=== PATIENT | female | born 1960 | race African-American/Black ===

== ENCOUNTER 2016-11-10 13:48 | Inpatient (IN) | payer SELFPAY ==
[~2016-11-10] VITALS: Ht 154.9 cm; Wt 70.4 kg
[~2016-11-10 13:48] MED LIST: ALBU6.7H INH; ALBU8I INH; AMOX500T PO; CHLO.12%30 SSP; FLAG500T PO; PRED20 PO; SYNT88TA PO; ULTR50TA PO
[2016-11-10 13:50] VITALS: BP 148/99; PULSE 92; RESP 16; TEMP 98.6; O2SAT 97
[2016-11-10] MEDS ORDERED: SYNT88TA PO (13:57)
--- NOTE | 2016-11-10 14:08 | PD ---
HPI Chief Complaint: Medication Refill Request Time Seen by Provider: 14:08 Travel History International Travel<30 days: No Contact w/Intl Traveler<30days: No Traveled to known affect area: No History of Present Illness HPI 56-year-old female with history of hypothyroidism, asthma presents to the ED for evaluation of swelling of the throat and tongue. Gradual onset. She complains of difficulty swallowing, feeling of "choking" and difficulties with breathing. Patient also endorses fatigue, weight gain, night sweats. She denies fevers, chills, palpitations, myalgias, loss of eyebrows, constipation. Patient states that she has been out of Synthroid for approximately 6 months. She lost her job and insurance and has been unable to find a provider willing to prescribe them. She is unsure of the cause of her hypothyroidism, has been on Synthroid since 1990. Denies other chronic health problems. Takes no daily medications. Multiple drug allergies. PFSH Past Medical History Asthma: Yes Respiratory: Yes (asthma) Thyroid Disease: Yes (hypothyroidism) ?: Not Past Surgical History Gynecologic Surgery: Yes (exploratory fibroid cyst in uterus 2000) Hysterectomy: No Social History Alcohol Use: No Tobacco Use: No Substance Use: No Allergies-Medications (Allergen,Severity, Reaction): Coded Allergies: Clindamycin (Verified Allergy, Severe, Diarrhea, 11/10/16) Ibuprofen (Verified Allergy, Severe, Anaphylaxis, 11/10/16) Sulfa (Verified Allergy, Severe, Anaphylaxis, 11/10/16) Tetracycline (Verified Allergy, Severe, Hives, 11/10/16) Reported Meds & Prescriptions Reported Meds & Active Scripts Active Reported Synthroid (Levothyroxine Sodium) 88 Mcg Tab 88 Mcg PO DAILY Review of Systems Except as stated in HPI: all other systems reviewed are Neg Physical Exam Narrative GENERAL: Well-nourished, [id number] female in no acute distress. SKIN: Warm and dry. HEAD: Normocephalic. EYES: No scleral icterus. No injection or drainage. No exophthalmos. NECK: Firm, enlarged, mildly nodular, nontender thyroid. Mallampati 3-4. Mild bilateral anterior cervical chain LAD. CARDIOVASCULAR: Regular rate and rhythm without murmurs, gallops, or rubs. 2+ radial pulses bilaterally. RESPIRATORY: Breath sounds equal bilaterally. Expiratory vibration/snore bilaterally. No accessory muscle use. GASTROINTESTINAL: Abdomen soft, non-tender, nondistended. MUSCULOSKELETAL: No cyanosis, or edema. BACK: Nontender without obvious deformity. No CVA tenderness. Data Data Last Documented VS Vital Signs Date Time Temp Pulse Resp B/P Pulse Ox O2 Delivery O2 Flow Rate FiO2 11/10/16 13:50 98.6 92 16 148/99 97 Room Air Orders Complete Blood Count With Diff (11/10/16 14:28) Comprehensive Metabolic Panel (11/10/16 14:28) Thyroid Stimulating Hormone (11/10/16 14:28) Free T3 (11/10/16 14:28) Free Thyroxine (T4) (11/10/16 14:28) Ct Soft Tiss Neck W Iv Cont (11/10/16 14:35) Iv Access Insert/Monitor (11/10/16 14:39) MDM Medical Decision Making Medical Screen Exam Complete: Yes Emergency Medical Condition: Yes Differential Diagnosis thyroiditis versus Eric versus Graves versus lymphoma versus airway obstruction versus other Narrative Course 56-year-old female with history of hypothyroidism, asthma presents to the ED for evaluation of swelling of the throat and tongue. Gradual onset. She complains of difficulty swallowing, feeling of "choking" and difficulties with breathing, fatigue, weight gain, night sweats. She denies fevers, chills, palpitations, myalgias, loss of eyebrows, constipation. Synthroid for 6 months. Unsure of the source of her hypothyroidism. Vitals reviewed. Patient is hypertensive 148/99 on presentation. Physical exam reveals a nontoxic- appearing black female in no acute distress. No exophthalmos. Firm, enlarged, mildly nodular, nontender thyroid. Mallampati 3-4. Mild bilateral anterior cervical chain LAD. Breath sounds equal bilaterally. Expiratory vibration/snore bilaterally. No accessory muscle use. Concern for airway obstruction secondary to goiter. CBC, CMP, TSH, free T4 and T3, thyroid ultrasound ordered. This patient will be transferred to the medical pods. Please see the oncoming provider's notes for disposition. Imani Alanis Nov 10, 2016 14:08
--- NOTE | 2016-11-10 14:55 | PD ---
Physical Exam Date Seen by Provider: Nov 10, 2016 Time Seen by Provider: 14:44 Narrative 56-year-old Afro-Portuguese male coming in with presumed goiter with history of hypothyroidism which has not been treated for the past 6 months secondary to insurance issues. Patient is having difficulty swallowing and swelling in the anterior neck. Patient previously seen by Aldo Alanis PAC move the patient to echo pod for more thorough investigation. Patient is currently medically stable. Data Data Last Documented VS Vital Signs Date Time Temp Pulse Resp B/P Pulse Ox O2 Delivery O2 Flow Rate FiO2 11/10/16 13:50 98.6 92 16 148/99 97 Room Air Orders Complete Blood Count With Diff (11/10/16 14:28) Comprehensive Metabolic Panel (11/10/16 14:28) Thyroid Stimulating Hormone (11/10/16 14:28) Free T3 (11/10/16 14:28) Free Thyroxine (T4) (11/10/16 14:28) Ct Soft Tiss Neck W Iv Cont (11/10/16 14:35) Iv Access Insert/Monitor (11/10/16 14:39) Iohexol 350 Inj (Omnipaque 350 Inj) (11/10/16 16:11) Us Thyroid (11/10/16 ) Labs Laboratory Tests Test 11/10/16 14:30 White Blood Count 6.5 TH/MM3 Red Blood Count 4.16 MIL/MM3 Hemoglobin 11.9 GM/DL Hematocrit 35.4 % Mean Corpuscular Volume 85.1 FL Mean Corpuscular Hemoglobin 28.6 PG Mean Corpuscular Hemoglobin 33.6 % Concent Red Cell Distribution Width 14.2 % Platelet Count 262 TH/MM3 Mean Platelet Volume 7.7 FL Neutrophils (%) (Auto) 69.1 % Lymphocytes (%) (Auto) 23.5 % Monocytes (%) (Auto) 5.0 % Eosinophils (%) (Auto) 1.6 % Basophils (%) (Auto) 0.8 % Neutrophils # (Auto) 4.5 TH/MM3 Lymphocytes # (Auto) 1.5 TH/MM3 Monocytes # (Auto) 0.3 TH/MM3 Eosinophils # (Auto) 0.1 TH/MM3 Basophils # (Auto) 0.1 TH/MM3 CBC Comment DIFF FINAL Differential Comment Sodium Level 139 MEQ/L Potassium Level 3.6 MEQ/L Chloride Level 103 MEQ/L Carbon Dioxide Level 26.8 MEQ/L Anion Gap 9 MEQ/L Blood Urea Nitrogen 13 MG/DL Creatinine 1.39 MG/DL Estimat Glomerular Filtration 47 ML/MIN Rate Random Glucose 89 MG/DL Calcium Level 8.8 MG/DL Total Bilirubin 0.5 MG/DL Aspartate Amino Transf 20 U/L (AST/SGOT) Alanine Aminotransferase 32 U/L (ALT/SGPT) Alkaline Phosphatase 85 U/L Total Protein 7.3 GM/DL Albumin 4.1 GM/DL Free Thyroxine 0.15 NG/DL Free Triiodothyronine (T3) 0.54 PG/ML pg/dL Thyroid Stimulating Hormone GREATER THAN 3rd Gen 100.000 uIU/ML MDM Medical Record Reviewed: Yes Supervised Visit with BRISA: Yes Differential Diagnosis Neck swelling. Goiter. Lymphadenopathy. Abscess. Difficulty swallowing. Possible airway compromise. Narrative Course Patient is medically stable when examined. Left been ordered including CBC, CMP, free T3 free T4 and TSH. CT of the soft tissue neck with IV contrast was ordered. Patient is seen by Dr. Newton as well. Patient is profoundly hypothyroid. CT does not show an patient to the airway. Ultrasound is ordered. Please see Dr. Newton's note. Patient will be admitted by the hospitalist. Patient discussed with the hospitalist by Dr. Newton. Diagnosis Primary Impression: Hypothyroidism Qualified Code: E03.0 - Congenital hypothyroidism with diffuse goiter Admitting Information Admitting Physician Requests: Admit Condition: Stable Av Lozoya Nov 10, 2016 14:55
[2016-11-10 15:09] LABS: AUTOMATED NEUTROPHIL # 4.5 TH/MM3 (1.8-7.7); BASOPHIL # 0.1 TH/MM3 (0-0.2); BASOPHIL % 0.8 % (0.0-2.0); EOSINOPHIL # 0.1 TH/MM3 (0-0.4); EOSINOPHIL % 1.6 % (0.0-4.0); HEMATOCRIT 35.4 % (35.0-46.0); HEMO FLAGS DIFF FINAL; LYMPH % 23.5 % (9.0-44.0); LYMPHOCYTE # 1.5 TH/MM3 (1.0-4.8); MEAN CELL VOLUME 85.1 FL (80.0-100.0); MEAN CORPUSCULAR HEMOGLOBIN 28.6 PG (27.0-34.0); MEAN CORPUSCULAR HGB CONC 33.6 % (32.0-36.0); NEUT % 69.1 % (16.0-70.0); PLATELET COUNT 262 TH/MM3 (150-450); RED BLOOD COUNT 4.16 MIL/MM3 (4.00-5.30); RED CELL DISTRIBUTION WIDTH 14.2 % (11.6-17.2); WHITE BLOOD COUNT 6.5 TH/MM3 (4.0-11.0)
[2016-11-10 15:21] LABS: ALT (GPT) 32 U/L (10-53); ANION GAP 9 MEQ/L (5-15); AST (GOT) 20 U/L (15-37); BICARBONATE 26.8 MEQ/L (21.0-32.0); BLOOD UREA NITROGEN 13 MG/DL (7-18); CHLORIDE 103 MEQ/L (98-107); GLOMERULAR FILTRATION RATE 47 ML/MIN (>89); POTASSIUM 3.6 MEQ/L (3.5-5.1); SODIUM (NA) 139 MEQ/L (136-145)
[2016-11-10 15:31] LABS: ALKALINE PHOSPHATASE 85 U/L (45-117); FREE T3 0.54 PG/ML (2.18-3.98); FREE T4 0.15 NG/DL (0.76-1.46); TOTAL BILIRUBIN ADULT 0.5 MG/DL (0.2-1.0)
[2016-11-10] MEDS ORDERED: IOHEXOL 350 MG/ML 10 ML VIAL (for RAD DIAG) IV ONE (16:11)
--- NOTE | 2016-11-10 16:17 | RADRPT ---
EXAM DATE/TIME: 11/10/2016 16:00 [facility] COMPARISON: No previous studies available for comparison. INDICATIONS : Goiter with airway compromise. IV CONTRAST: 75 cc Omnipaque 350 (iohexol) IV RADIATION DOSE: 14.76 CTDIvol (mGy) MEDICAL HISTORY : Hypothyroidism. SURGICAL HISTORY : None. ENCOUNTER: Initial ACUITY: 2 days PAIN SCALE: 3/10 LOCATION: neck TECHNIQUE: Volumetric scanning of the neck was performed. Using automated exposure control and adjustment of th e mA and/or kV according to patient size, radiation dose was kept as low as reasonably achievable to obtain optimal diagnostic quality images. FINDINGS: NASOPHARYNX: The nasopharyngeal airway has a normal configuration. No mucosal thickening or mass is seen. OROPHARYNX: The intrinsic muscles of the tongue are symmetric. The tonsillar pillars are intact. The prevertebr al soft tissues are not thickened. LARYNX: The supraglottic, glottic, and infraglottic structures are intact. PARAPHARYNGEAL: The parapharyngeal space is intact. SALIVARY GLANDS: The parotid and submandibular glands are intact. LYMPH NODES: No enlarged or necrotic-appearing nodes. THYROID: Homogeneous enhancement without evidence of nodule. There is no significant goiter or airway compromi se. BONES: Unremarkable. CONCLUSION: No acute disease. No evidence of significant goiter or airway compromise. Joe Yang MD on November 10, 2016 at 16:13 Board Certified Radiologist. This report was verified electronically.
--- NOTE | 2016-11-10 16:40 | PD ---
Data Data Last Documented VS Vital Signs Date Time Temp Pulse Resp B/P Pulse Ox O2 Delivery O2 Flow Rate FiO2 11/10/16 13:50 98.6 92 16 148/99 97 Room Air Orders Complete Blood Count With Diff (11/10/16 14:28) Comprehensive Metabolic Panel (11/10/16 14:28) Thyroid Stimulating Hormone (11/10/16 14:28) Free T3 (11/10/16 14:28) Free Thyroxine (T4) (11/10/16 14:28) Ct Soft Tiss Neck W Iv Cont (11/10/16 14:35) Iv Access Insert/Monitor (11/10/16 14:39) Iohexol 350 Inj (Omnipaque 350 Inj) (11/10/16 16:11) Us Thyroid (11/10/16 ) Admit Order (Ed Use Only) (11/10/16 16:41) Labs Laboratory Tests Test 11/10/16 14:30 White Blood Count 6.5 TH/MM3 Red Blood Count 4.16 MIL/MM3 Hemoglobin 11.9 GM/DL Hematocrit 35.4 % Mean Corpuscular Volume 85.1 FL Mean Corpuscular Hemoglobin 28.6 PG Mean Corpuscular Hemoglobin 33.6 % Concent Red Cell Distribution Width 14.2 % Platelet Count 262 TH/MM3 Mean Platelet Volume 7.7 FL Neutrophils (%) (Auto) 69.1 % Lymphocytes (%) (Auto) 23.5 % Monocytes (%) (Auto) 5.0 % Eosinophils (%) (Auto) 1.6 % Basophils (%) (Auto) 0.8 % Neutrophils # (Auto) 4.5 TH/MM3 Lymphocytes # (Auto) 1.5 TH/MM3 Monocytes # (Auto) 0.3 TH/MM3 Eosinophils # (Auto) 0.1 TH/MM3 Basophils # (Auto) 0.1 TH/MM3 CBC Comment DIFF FINAL Differential Comment Sodium Level 139 MEQ/L Potassium Level 3.6 MEQ/L Chloride Level 103 MEQ/L Carbon Dioxide Level 26.8 MEQ/L Anion Gap 9 MEQ/L Blood Urea Nitrogen 13 MG/DL Creatinine 1.39 MG/DL Estimat Glomerular Filtration 47 ML/MIN Rate Random Glucose 89 MG/DL Calcium Level 8.8 MG/DL Total Bilirubin 0.5 MG/DL Aspartate Amino Transf 20 U/L (AST/SGOT) Alanine Aminotransferase 32 U/L (ALT/SGPT) Alkaline Phosphatase 85 U/L Total Protein 7.3 GM/DL Albumin 4.1 GM/DL Free Thyroxine 0.15 NG/DL Free Triiodothyronine (T3) 0.54 PG/ML pg/dL Thyroid Stimulating Hormone GREATER THAN 3rd Gen 100.000 uIU/ML MDM Supervised Visit with BRISA: Yes Narrative Course I, Dr. Rodríguez, have reviewed the advance practice practioner's documentation and am in agreement, met with the patient face to face, made the diagnosis, and the medical decision making was done by me. *My assessment and Findings: 56-year-old female with history of hypothyroidism here with complaint of swelling in the back of her throat, states she feels like she is choking. Patient has been off of her Synthroid for the last 6 months. On exam she does have thyromegaly and swelling within the posterior pharynx, Mallampati 4. Concern for hypothyroidism, thyroid mass, thyroid cancer , goiter. CT shows no evidence of mass but this is present clinically so will work up further with ultrasound. Patient however has significant hypothyroidism with TSH greater than 100 and free T3/T4 essentially undetectable. Given my concerns for potential myxedema coma progression patient will be admitted for further management of her severe hypothyroidism, and farther workup for thyroidomegaly, thyroid mass, goiter. Diagnosis Primary Impression: Severe hypothyroidism Elyssa Rodríguez MD Nov 10, 2016 16:40
[2016-11-10] MEDS ORDERED: SENNOSIDES 8.6 MG TAB PO PRN (17:00)
[2016-11-10] MEDS ORDERED: PROCHLORPERAZINE 25 MG SUPP PR PRN (17:00)
[2016-11-10] MEDS ORDERED: TEMAZEPAM 15 MG CAP PO PRN (17:00)
[2016-11-10] MEDS ORDERED: SODIUM CHLORIDE 0.9% FLUSH 5 ML FLUSH FLUSH PRN (17:00)
[2016-11-10] MEDS ORDERED: ACETAMINOPHEN 325 MG TAB PO PRN (17:00)
[2016-11-10] MEDS ORDERED: MAGNESIUM HYDROXIDE SUSP 30 ML CUP PO PRN (17:00)
[2016-11-10] MEDS ORDERED: BISACODYL 10 MG SUPP PR PRN (17:00)
[2016-11-10] MEDS ORDERED: ONDANSETRON HCL 4 MG/2 ML VIAL IVP PRN (17:00)
[2016-11-10 17:29] VITALS: BP 129/92; PULSE 67; RESP 20; O2SAT 98
[2016-11-10] MEDS ORDERED: LEVOTHYROXINE SODIUM 100 MCG VIAL IV PUSH ONE (17:45)
--- NOTE | 2016-11-10 18:13 | HHI.HP ---
[facility] Primary Care Physician No Primary Care Physician Admission Diagnosis severe hypothyroidism Diagnoses: Chief Complaint: "Ran out of my thyroid medication and feel terrible" Travel History International Travel<30 Days: No Contact w/Intl Traveler <30 Da: No Traveled to Known Affected Are: No History of Present Illness Physical 56-year-old [place] female with past medical history which includes hypothyroidism and asthma. Patient reports she lost her job proximally 6 months ago as well as her health insurance and has not been able to get her thyroid medication. Reports she has been feeling progressively worse over the past few months and over the past 1.5 weeks she has been having difficulty swallowing therefore she proceeded to the emergency department for further evaluation and treatment. Patient also endorses fatigue, weight gain, night sweats. Patient denies shortness of breath chest pain vomiting. Patient reports she has not been eating or drinking as much as she normally does due to his difficulty swallowing. She is unsure of the cause of her hypothyroidism, has been on Synthroid since 1990. TSH noted to be greater than 100 Review of Systems Other All other systems reviewed and negative except as mentioned in history of present illness Past Family Social History Past Medical History Hypothyroidism and asthma Past Surgical History Exploratory surgery and removal of fibroid cyst from the uterus Reported Medications Synthroid (Levothyroxine Sodium) 88 Mcg Tab 88 Mcg PO DAILY- has not taken for the past 6 months Allergies: Coded Allergies: Clindamycin (Verified Allergy, Severe, Diarrhea, 11/10/16) Ibuprofen (Verified Allergy, Severe, Anaphylaxis, 11/10/16) Sulfa (Verified Allergy, Severe, Anaphylaxis, 11/10/16) Tetracycline (Verified Allergy, Severe, Hives, 11/10/16) Active Ordered Medications Current Medications Medications (Trade) Dose Ordered Sig/Molly Route Start Time Stop Time Status Last Admin (NS 1000 ml Inj) 1,000 ml @ 100 mls/hr Q10H IV 11/10/16 17:00 (NS Flush) 2 ml UNSCH PRN FLUSH 11/10/16 17:00 (NS Flush) 2 ml BID FLUSH 11/10/16 21:00 (Tylenol) 650 mg Q4H PRN PO 11/10/16 17:00 (Zofran Inj) 4 mg Q6H PRN IVP 11/10/16 17:00 (Compazine Supp) 25 mg Q12H PRN HI 11/10/16 17:00 (Dulcolax Supp) 10 mg DAILY PRN HI 11/10/16 17:00 (Milk Of Magnesia Liq) 30 ml Q12H PRN PO 11/10/16 17:00 (Senokot) 17.2 mg Q12H PRN PO 11/10/16 17:00 (Restoril) 15 mg HS PRN PO 11/10/16 17:00 (Lovenox Inj) 40 mg Q24H SQ 11/10/16 17:00 (Synthroid) 88 mcg DAILY@06 PO 11/11/16 06:00 Family History Father at 77 secondary to CVA Mother is living 83 years old and has dementia Social History Denies EtOH use tobacco use or illicit drug use Physical Exam Vital Signs Vital Signs Date Time Temp Pulse Resp B/P Pulse Ox O2 Delivery O2 Flow Rate FiO2 11/10/16 17:29 67 20 129/92 98 Room Air 11/10/16 13:50 98.6 92 16 148/99 97 Room Air Physical Exam GENERAL: This is a well-nourished, well-developed patient, appears fatigued and slow to respond SKIN: No rashes, ecchymoses or lesions. Cool and dry. HEAD: Atraumatic. Normocephalic. No temporal or scalp tenderness. Hair is coarse EYES: Extraocular motions intact. No scleral icterus. No injection or drainage. ENT: Nose without bleeding, purulent drainage or septal hematoma. Throat without erythema, tonsillar hypertrophy or exudate. Uvula midline. Airway patent. NECK: Trachea midline. No JVD or lymphadenopathy. Supple, nontender, no meningeal signs. CARDIOVASCULAR: Regular rate and rhythm without murmurs, gallops, or rubs. RESPIRATORY: Clear to auscultation. Breath sounds equal bilaterally. No wheezes , rales, or rhonchi. GASTROINTESTINAL: Abdomen soft, non-tender, nondistended. No hepato-splenomegaly , or palpable masses. No guarding. MUSCULOSKELETAL: Trace bilateral lower extremity edema No calf tenderness. Negative Homans sign bilaterally. NEUROLOGICAL: Awake and alert. No focal deficits identified. intact reflexes Motor and sensory grossly within normal limits. Five out of 5 muscle strength in all muscle groups. Slow speech. Laboratory Laboratory Tests Test 11/10/16 14:30 White Blood Count 6.5 Red Blood Count 4.16 Hemoglobin 11.9 Hematocrit 35.4 Mean Corpuscular Volume 85.1 Mean Corpuscular Hemoglobin 28.6 Mean Corpuscular Hemoglobin 33.6 Concent Red Cell Distribution Width 14.2 Platelet Count 262 Mean Platelet Volume 7.7 Neutrophils (%) (Auto) 69.1 Lymphocytes (%) (Auto) 23.5 Monocytes (%) (Auto) 5.0 Eosinophils (%) (Auto) 1.6 Basophils (%) (Auto) 0.8 Neutrophils # (Auto) 4.5 Lymphocytes # (Auto) 1.5 Monocytes # (Auto) 0.3 Eosinophils # (Auto) 0.1 Basophils # (Auto) 0.1 CBC Comment DIFF FINAL Differential Comment Sodium Level 139 Potassium Level 3.6 Chloride Level 103 Carbon Dioxide Level 26.8 Anion Gap 9 Blood Urea Nitrogen 13 Creatinine 1.39 Estimat Glomerular Filtration 47 Rate Random Glucose 89 Calcium Level 8.8 Total Bilirubin 0.5 Aspartate Amino Transf 20 (AST/SGOT) Alanine Aminotransferase 32 (ALT/SGPT) Alkaline Phosphatase 85 Total Protein 7.3 Albumin 4.1 Free Thyroxine 0.15 Free Triiodothyronine (T3) 0.54 pg/dL Thyroid Stimulating Hormone GREATER THAN 3rd Gen 100.000 Result Diagram: 11/10/16 1430 11/10/16 1430 Imaging Last Impressions Neck CT 11/10/16 1435 Signed Impressions: Service Date/Time: Thursday, November 10, 2016 16:00 - CONCLUSION: No acute disease. No evidence of significant goiter or airway compromise. Joe Yang MD Assessment and Plan Assessment and Plan Physical 56-year-old [place] female with past medical history which includes hypothyroidism and asthma. Patient reports she lost her job proximally 6 months ago as well as her health insurance and has not been able to get her thyroid medication. Reports she has been feeling progressively worse over the past few months and over the past 1.5 weeks she has been having difficulty swallowing therefore she proceeded to the emergency department for further evaluation and treatment. Severe hypothyroidism TSH dated in 100. Blood pressure and vital signs stable TSH 200 mcg IV times one start 88 mcg by mouth daily tomorrow Flat hemoglobin A1c and lipid panel to labs to check for metabolic syndrome Elevated creatinine, acute kidney injury possibly secondary to dehydration Start IV fluids and recheck BMP in a.m. Asthma history duo nebs as needed DVT prophylaxis SCDs and Ernst's Discussed plan of care with the ER provider, RN, patient Written by Brittney Gastelum, acting as scribe for Dr. Maki on 11/10/16 at 18 :13. The documentation accurately reflects the work performed [id number] by me Dr. Maki on 11/10/16 at 18:13. Code Status full code Discussed Condition With patient, nurse, ED physician Brittney Gastelum Nov 10, 2016 18:13 Sweta Maki MD Nov 10, 2016 21:26
[2016-11-10] MEDS: SODIUM CHLOR 0.9% 1000 ML INJ 1,000 ML IV SCH (18:57)
[2016-11-10] MEDS: ENOXAPARIN SODIUM 40 MG/0.4 ML SYRINGE SQ SCH (18:58)
[2016-11-10 20:00] VITALS: BP 132/88; PULSE 74; RESP 20; TEMP 96.7; O2SAT 100
[2016-11-10 20:05] LABS: HDL CHOLESTEROL 88.6 MG/DL (40.0-60.0); LDL CHOLESTEROL 261 MG/DL (0-99)
[2016-11-10] MEDS: SODIUM CHLORIDE 0.9% FLUSH 5 ML FLUSH FLUSH SCH (21:00)
[2016-11-10] MEDS ORDERED: BENZOCAINE 6 MG/MENTHOL 10 MG LOZENGE BUCCAL ONE (21:30)
[2016-11-11] VITALS (9 sets, daily range): BP systolic 107–141; BP diastolic 69–91; PULSE 51–74; RESP 16–22; TEMP 96.4–97.6; O2SAT 97–100
[2016-11-11] MEDS: SODIUM CHLOR 0.9% 1000 ML INJ 1,000 ML IV SCH ×3 (03:00→23:00)
[2016-11-11] MEDS: LEVOTHYROXINE SODIUM 88 MCG TAB PO SCH (06:22)
[2016-11-11 07:26] LABS: AUTOMATED NEUTROPHIL # 3.8 TH/MM3 (1.8-7.7); BASOPHIL # 0.1 TH/MM3 (0-0.2); EOSINOPHIL # 0.3 TH/MM3 (0-0.4); EOSINOPHIL % 3.6 % (0.0-4.0); HEMATOCRIT 34.4 % (35.0-46.0); HEMO FLAGS DIFF FINAL; LYMPH % 35.2 % (9.0-44.0); LYMPHOCYTE # 2.5 TH/MM3 (1.0-4.8); MEAN CORPUSCULAR HEMOGLOBIN 28.2 PG (27.0-34.0); MEAN CORPUSCULAR HGB CONC 32.7 % (32.0-36.0); MONO % 5.7 % (0.0-8.0); NEUT % 54.5 % (16.0-70.0); PLATELET COUNT 240 TH/MM3 (150-450); RED CELL DISTRIBUTION WIDTH 14.1 % (11.6-17.2)
[2016-11-11 07:53] LABS: ANION GAP 11 MEQ/L (5-15); BICARBONATE 25.1 MEQ/L (21.0-32.0); BLOOD UREA NITROGEN 13 MG/DL (7-18); CHLORIDE 105 MEQ/L (98-107); GLOMERULAR FILTRATION RATE 44 ML/MIN (>89); POTASSIUM 3.4 MEQ/L (3.5-5.1); SODIUM (NA) 141 MEQ/L (136-145)
[2016-11-11] MEDS: SODIUM CHLORIDE 0.9% FLUSH 5 ML FLUSH FLUSH SCH ×2 (09:00→20:41)
[2016-11-11 10:34] LABS: HEMOGLOBIN A1a 0.9 %; HEMOGLOBIN A1b 0.7 %; HEMOGLOBIN Ao 54.1 %; HEMOGLOBIN F 0.9 %; HEMOGLOBIN LA1C 1.1 %; HEMOGLOBIN P3 2.4 %
[2016-11-11] MEDS ORDERED: SYNT88TA PO (12:17)
[2016-11-11] MEDS ORDERED: NORC5TAB PO (12:17)
[2016-11-11] MEDS ORDERED: SIMV20TA PO (12:19)
[2016-11-11] MEDS ORDERED: FAMO1TAB37 PO (12:19)
--- NOTE | 2016-11-11 12:20 | HHI.DCPOC ---
Discharge Care Plan Goals to Promote Your Health * To prevent worsening of your condition and complications * To maintain your health at the optimal level Directions to Meet Your Goals Take your medications as prescribed Follow your dietary instruction Follow activity as directed Keep your appointments as scheduled Take your immunizations and boosters as scheduled If your symptoms worsen call your PCP, if no PCP go to Urgent Care Center or Emergency Room Smoking is Dangerous to Your Health. Avoid second hand smoke Call the 24-hour hour crisis hotline for domestic abuse at Sweta Maki MD Nov 11, 2016 12:19
[2016-11-11] MEDS ORDERED: POTASSIUM CHLORIDE 10 MEQ CONTROLLED RELEASE TAB PO ONE (13:00)
[2016-11-11] MEDS: ACETAMINOPHEN/HYDROcodone 325 MG/5 MG TAB PO PRN ×3 (13:00→23:15)
[2016-11-11] MEDS ORDERED: PANTOPRAZOLE SODIUM 40 MG VIAL IV PUSH ONE (13:00)
[2016-11-11] MEDS: NYSTAT/DIPHENHY/LIDO MOUTHWASH (Adult) 120ML SWISH-SWAL SCH ×3 (14:00→20:37)
--- NOTE | 2016-11-11 14:00 | HHI.PR ---
Subjective Remarks Patient says she can't eat much because she has dysphagia and she also has GERD and was not able to afford medications. She reports pain in her throat when she is eating. No fever or chills. No n/v/d/c. Objective Vitals Vital Signs Date Time Temp Pulse Resp B/P Pulse Ox O2 Delivery O2 Flow Rate FiO2 11/11/16 12:00 96.9 72 20 115/76 98 11/11/16 10:13 98 21 11/11/16 08:00 96.6 58 20 123/69 97 11/11/16 04:57 98 21 11/11/16 04:00 97.4 69 16 120/69 99 11/11/16 00:00 96.4 67 22 120/81 99 11/10/16 20:00 96.7 74 20 132/88 100 11/10/16 17:29 67 20 129/92 98 Room Air I/O 11/10/16 11/10/16 11/10/16 11/11/16 11/11/16 11/11/16 07:00 15:00 23:00 07:00 15:00 23:00 Intake Total 240 ml 240 ml Balance 240 ml 240 ml Intake Oral 240 ml 240 ml # Voids 2 2 # Bowel Movements 0 0 Result Diagram: 11/11/16 0603 11/11/16 0603 Imaging Last Impressions Neck CT 11/10/16 1435 Signed Impressions: Service Date/Time: Thursday, November 10, 2016 16:00 - CONCLUSION: No acute disease. No evidence of significant goiter or airway compromise. Joe Yang MD Objective Remarks GENERAL: This is a well-nourished, well-developed patient, appears fatigued and slow to respond SKIN: No rashes, ecchymoses or lesions. Cool and dry. HEAD: Atraumatic. Normocephalic. No temporal or scalp tenderness. Hair is coarse EYES: Extraocular motions intact. No scleral icterus. No injection or drainage. ENT: Nose without bleeding, purulent drainage or septal hematoma. Throat without erythema, tonsillar hypertrophy or exudate. Uvula midline. Airway patent. NECK: Trachea midline. No JVD or lymphadenopathy. Supple, nontender, no meningeal signs. CARDIOVASCULAR: Regular rate and rhythm without murmurs, gallops, or rubs. RESPIRATORY: Clear to auscultation. Breath sounds equal bilaterally. No wheezes , rales, or rhonchi. GASTROINTESTINAL: Abdomen soft, non-tender, nondistended. No hepato-splenomegaly , or palpable masses. No guarding. MUSCULOSKELETAL: Trace bilateral lower extremity edema No calf tenderness. Negative Homans sign bilaterally. NEUROLOGICAL: Awake and alert. No focal deficits identified. intact reflexes Motor and sensory grossly within normal limits. Five out of 5 muscle strength in all muscle groups. Slow speech. A/P Assessment and Plan Physical 56-year-old [place] female with past medical history which includes hypothyroidism and asthma. Patient reports she lost her job proximally 6 months ago as well as her health insurance and has not been able to get her thyroid medication. Reports she has been feeling progressively worse over the past few months and over the past 1.5 weeks she has been having difficulty swallowing therefore she proceeded to the emergency department for further evaluation and treatment. Severe hypothyroidism TSH dated in 100. Blood pressure and vital signs stable TSH 200 mcg IV times one at admission Start 88 mcg by mouth daily Hemoglobin A1c normal. Lipid panel reviewed patient with HLD, start statin Dysphagia. GERD. Start protonix. Give magic wash. Start pain meds. Elevated creatinine, acute kidney injury possibly secondary to dehydration Continue IV fluids , kidney function not improving. Will check UA and Kidney US Asthma history duo nebs as needed DVT prophylaxis SCDs and Ernst's Code Status full code Discussed Condition With patient, nurse, Sweta Maki MD Nov 11, 2016 14:00
[2016-11-11 16:28] LABS: BLOOD, URINE NEG (NEG); GLUCOSE,URINE NEG (NEG); KETONE, URINE NEG (NEG); NITRITE,URINE NEG (NEG); SQUAMOUS EPITHELIAL CELL URINE <1 /hpf (0-5); URINE COLOR LIGHT-YELLOW (YELLW/STRAW)
[2016-11-11 16:30] LABS: COMMENT (UR) CULT NOT INDICATED; CULTURE IF INDICATED CULT NOT INDICATED
[2016-11-11] MEDS: ENOXAPARIN SODIUM 40 MG/0.4 ML SYRINGE SQ SCH (16:59)
[2016-11-11] MEDS ORDERED: ATORVASTATIN 20 MG TAB PO SCH (21:00)
--- NOTE | 2016-11-11 23:03 | RADRPT ---
EXAM DATE/TIME: 11/11/2016 21:54 [facility] COMPARISON: No previous studies available for comparison. INDICATIONS : Increased BUN and Creatinine. MEDICAL HISTORY : Hypothyroidism. Asthma. SURGICAL HISTORY : Fibroid removal. ENCOUNTER: Initial ACUITY: 1 day PAIN SCORE: 0/10 LOCATION: Bilateral flank MEASUREMENTS: RIGHT KIDNEY: 9.0 x 4.6 x 3.7 cm LEFT KIDNEY: 11.5 x 4.6 x 5.8 cm FINDINGS: RIGHT KIDNEY: Renal cortex is normal in thickness and echotexture. No hydronephrosis, stone, or mass. LEFT KIDNEY: Renal cortex is normal in thickness and echotexture. No hydronephrosis, stone, or mass. BLADDER: Within normal limits given the degree of distension. CONCLUSION: 1. Unremarkable ultrasound examination of the kidneys. Kieran Teague MD on November 11, 2016 at 23:01 Board Certified Radiologist. This report was verified electronically.
[2016-11-12] VITALS (7 sets, daily range): BP systolic 122–139; BP diastolic 79–97; PULSE 38–82; RESP 16–20; TEMP 95.9–98.1; O2SAT 56–99
[2016-11-12] MEDS: LEVOTHYROXINE SODIUM 88 MCG TAB PO SCH (04:08)
[2016-11-12] MEDS: ACETAMINOPHEN/HYDROcodone 325 MG/5 MG TAB PO PRN ×2 (04:08→08:40)
[2016-11-12 05:16] LABS: ANION GAP 6 MEQ/L (5-15); BICARBONATE 28.8 MEQ/L (21.0-32.0); BLOOD UREA NITROGEN 14 MG/DL (7-18); CHLORIDE 105 MEQ/L (98-107); GLOMERULAR FILTRATION RATE 47 ML/MIN (>89); MAGNESIUM 2.2 MG/DL (1.5-2.5); POTASSIUM 4.1 MEQ/L (3.5-5.1); SODIUM (NA) 140 MEQ/L (136-145)
[2016-11-12 05:19] LABS: AUTOMATED NEUTROPHIL # 3.2 TH/MM3 (1.8-7.7); BASOPHIL % 0.8 % (0.0-2.0); EOSINOPHIL # 0.1 TH/MM3 (0-0.4); EOSINOPHIL % 2.5 % (0.0-4.0); HEMATOCRIT 32.9 % (35.0-46.0); HEMO FLAGS DIFF FINAL; LYMPH % 35.8 % (9.0-44.0); LYMPHOCYTE # 2.1 TH/MM3 (1.0-4.8); MEAN CELL VOLUME 85.6 FL (80.0-100.0); MEAN CORPUSCULAR HEMOGLOBIN 28.5 PG (27.0-34.0); MEAN CORPUSCULAR HGB CONC 33.3 % (32.0-36.0); MONO % 5.2 % (0.0-8.0); NEUT % 55.7 % (16.0-70.0); PLATELET COUNT 228 TH/MM3 (150-450); RED BLOOD COUNT 3.84 MIL/MM3 (4.00-5.30); RED CELL DISTRIBUTION WIDTH 14.3 % (11.6-17.2); WHITE BLOOD COUNT 5.8 TH/MM3 (4.0-11.0)
[2016-11-12] MEDS: NYSTAT/DIPHENHY/LIDO MOUTHWASH (Adult) 120ML SWISH-SWAL SCH ×2 (08:40→13:11)
[2016-11-12] MEDS: SODIUM CHLOR 0.9% 1000 ML INJ 1,000 ML IV SCH (08:42)
[2016-11-12] MEDS: SODIUM CHLORIDE 0.9% FLUSH 5 ML FLUSH FLUSH SCH (09:00)
[2016-11-12] MEDS ORDERED: PANTOPRAZOLE SOD 20 MG DELAYED RELEASE TAB PO SCH (09:00)
--- NOTE | 2016-11-12 10:06 | HHI.PR ---
Subjective Remarks Feels much better. Can eat better today. No n/v/d/c. Kidney function is improving. Objective Vitals Vital Signs Date Time Temp Pulse Resp B/P Pulse Ox O2 Delivery O2 Flow Rate FiO2 11/12/16 08:00 95.9 66 20 128/87 97 11/12/16 05:57 20 97 11/12/16 05:57 97.5 56 18 128/85 56 11/12/16 05:46 48 11/12/16 05:41 38 11/12/16 05:16 18 11/12/16 04:00 97.5 66 16 133/79 98 11/12/16 00:00 98.1 73 18 122/81 98 11/11/16 20:00 97.6 74 16 141/91 98 11/11/16 19:38 56 11/11/16 16:00 96.6 67 20 107/70 100 11/11/16 12:00 96.9 72 20 115/76 98 11/11/16 10:13 98 21 I/O 11/11/16 11/11/16 11/11/16 11/12/16 11/12/16 11/12/16 07:00 15:00 23:00 07:00 15:00 23:00 Intake Total 240 ml 600 ml 480 ml 708 ml Output Total 600 ml Balance 240 ml 0 ml 480 ml 708 ml Intake Oral 240 ml 600 ml 480 ml 240 ml IV Total 468 ml Output Urine Total 600 ml # Voids 2 3 1 2 # Bowel Movements 0 1 Result Diagram: 11/12/16 0335 11/12/16 0335 Imaging Last Impressions Neck CT 11/10/16 1435 Signed Impressions: Service Date/Time: Thursday, November 10, 2016 16:00 - CONCLUSION: No acute disease. No evidence of significant goiter or airway compromise. Joe Yang MD Objective Remarks GENERAL: This is a well-nourished, well-developed patient, appears fatigued and slow to respond SKIN: No rashes, ecchymoses or lesions. Cool and dry. HEAD: Atraumatic. Normocephalic. No temporal or scalp tenderness. Hair is coarse EYES: Extraocular motions intact. No scleral icterus. No injection or drainage. ENT: Nose without bleeding, purulent drainage or septal hematoma. Throat without erythema, tonsillar hypertrophy or exudate. Uvula midline. Airway patent. NECK: Trachea midline. No JVD or lymphadenopathy. Supple, nontender, no meningeal signs. CARDIOVASCULAR: Regular rate and rhythm without murmurs, gallops, or rubs. RESPIRATORY: Clear to auscultation. Breath sounds equal bilaterally. No wheezes , rales, or rhonchi. GASTROINTESTINAL: Abdomen soft, non-tender, nondistended. No hepato-splenomegaly , or palpable masses. No guarding. MUSCULOSKELETAL: Trace bilateral lower extremity edema No calf tenderness. Negative Homans sign bilaterally. NEUROLOGICAL: Awake and alert. No focal deficits identified. intact reflexes Motor and sensory grossly within normal limits. Five out of 5 muscle strength in all muscle groups. Slow speech. A/P Assessment and Plan Physical 56-year-old [place] female with past medical history which includes hypothyroidism and asthma. Patient reports she lost her job proximally 6 months ago as well as her health insurance and has not been able to get her thyroid medication. Reports she has been feeling progressively worse over the past few months and over the past 1.5 weeks she has been having difficulty swallowing therefore she proceeded to the emergency department for further evaluation and treatment. Severe hypothyroidism TSH dated in 100. Blood pressure and vital signs stable TSH 200 mcg IV times one at admission Start 88 mcg by mouth daily Hemoglobin A1c normal. Lipid panel reviewed patient with HLD, start statin Dysphagia. GERD. Start protonix. Give magic wash. Start pain meds. Elevated creatinine, acute kidney injury possibly secondary to dehydration Continue IV fluids , kidney function not improving. Will check UA and Kidney US Asthma history duo nebs as needed DVT prophylaxis SCDs and Ernst's Code Status full code Discussed Condition With patient, nurse, Discharge Planning DC home in fairly well condition To follow up with PCP and consultants as OP. Meds per med reconciliations. Activity ad gustavo as tolerated Diet regular, low fat diet CM for DC plan for meds and follow up Sweta Maki MD Nov 12, 2016 10:06
--- NOTE | 2016-11-12 16:03 | EKG ---
Date Performed: 11/12/2016 Time Performed: 06:21:12 PTAGE: 56 years EKG: SINUS BRADYCARDIA BORDERLINE LEFT AXIS DEVIATION LOW QRS VOLTAGE IN PRECORDIAL LEADS Diffus e nonspecific T wave flattenning Cannot rule out ischemia Clinical correlation is recommended BORDERL INE ECG NO PREVIOUS TRACING DOCTOR: Declan Jenkins Interpretating Date/Time 11/12/2016 16:01:49
== END 2016-11-12 13:54 | disposition home or self-care (01) | DRG 644 ==
LOC: NEPE 13:48 → NEDA 16:42 → N06A 19:36
PROVIDERS: ADMIT Hospitalist; ATTEND Hospitalist
DX: E03.9 Hypothyroidism, unspecified (principal); N17.9 Acute kidney failure, unspecified; E78.5 Hyperlipidemia, unspecified; J45.909 Unspecified asthma, uncomplicated; K21.9 Gastro-esophageal reflux disease without esophagitis; R13.10 Dysphagia, unspecified; E86.0 Dehydration; Z88.1 Allergy status to other antibiotic agents; Z88.2 Allergy status to sulfonamides; Z88.6 Allergy status to analgesic agent
CPT/HCPCS: 70491; 76775; 80048; 80053; 80061; 81001; 83036; 83735; 84439; 84443; 84481; 85025; 93005; C9113; J1650; J7030; Q9967

== ENCOUNTER 2017-02-19 13:57 | Emergency (ER) | payer SELFPAY ==
[~2017-02-19] VITALS: Ht 154.9 cm; Wt 61.5 kg
[~2017-02-19 13:57] MED LIST changes: -ALBU6.7H INH; -ALBU8I INH; -AMOX500T PO; -CHLO.12%30 SSP; -FLAG500T PO; -PRED20 PO; +SIMV20TA PO; -ULTR50TA PO
[2017-02-19 13:59] VITALS: BP 121/74; PULSE 81; RESP 17; TEMP 98.2; O2SAT 98
--- NOTE | 2017-02-19 14:07 | PD ---
Physical Exam Time Seen by Provider: 14:04 Narrative 56yo F c/o thyroid. Reports Insomnia, night sweats, confusion, anxiety, ALMARAZ's, not able to concentrate. No PCP. Been out of medication x1week. Denies chest pain, SOB, heart palpitations. Patient stable. Patient seen in triage. Awaiting bed placement. Data Data Last Documented VS Vital Signs Date Time Temp Pulse Resp B/P Pulse Ox O2 Delivery O2 Flow Rate FiO2 02/19/17 13:59 98.2 81 17 121/74 98 MDM Supervised Visit with BRISA: Violeta Koch Feb 19, 2017 14:07
[2017-02-19] MEDS ORDERED: LEVOTHYROXINE SODIUM 100 MCG TAB PO ONE (15:15)
[2017-02-19] MEDS ORDERED: LEVO.1 PO (15:41)
--- NOTE | 2017-02-19 15:41 | PD ---
HPI Chief Complaint: Medical Clearance Time Seen by Provider: 14:38 Travel History International Travel<30 days: No Contact w/Intl Traveler<30days: No Traveled to known affect area: No History of Present Illness HPI So 56-year-old woman who presents to the emergency department complaining of running out of her thyroid medicine about a week and a half ago. She states that she doesn't feel well and this happened. Her her hair falls out. She states despite taking her 80 g of Synthroid daily prior to this she never really felt well. She had previously been admitted to the hospital for hypothyroidism after running out of her medications for 6 months. History Past Medical History Narrative Medical Hypothyroidism Influenza Vaccination: No Social History Alcohol Use: No Tobacco Use: No Allergies-Medications (Allergen,Severity, Reaction): Coded Allergies: Clindamycin (Verified Allergy, Severe, Diarrhea, 02/19/17) Ibuprofen (Verified Allergy, Severe, Anaphylaxis, 02/19/17) Sulfa (Verified Allergy, Severe, Anaphylaxis, 02/19/17) Tetracycline (Verified Allergy, Severe, Hives, 02/19/17) Reported Meds & Prescriptions Reported Meds & Active Scripts Active Simvastatin 20 Mg Tab 20 Mg PO DAILY Synthroid (Levothyroxine Sodium) 88 Mcg Tab 88 Mcg PO DAILY Review of Systems Except as stated in HPI: all other systems reviewed are Neg Physical Exam Narrative GENERAL: Well-appearing 56-year-old woman, no acute distress. SKIN: Focused skin assessment warm/dry. HEAD: Atraumatic. Normocephalic. EYES: Pupils equal and round. No scleral icterus. No injection or drainage. ENT: No nasal bleeding or discharge. Mucous membranes pink and moist. NECK: Trachea midline. No JVD. CARDIOVASCULAR: Regular rate and rhythm. No murmur appreciated. RESPIRATORY: No accessory muscle use. Clear to auscultation. Breath sounds equal bilaterally. GASTROINTESTINAL: Abdomen soft, non-tender, nondistended. Hepatic and splenic margins not palpable. MUSCULOSKELETAL: No obvious deformities. No clubbing. No cyanosis. No edema. NEUROLOGICAL: Awake and alert. No obvious cranial nerve deficits. Motor grossly within normal limits. Normal speech. PSYCHIATRIC: Appropriate mood and affect; insight and judgment normal. Data Data Last Documented VS Vital Signs Date Time Temp Pulse Resp B/P Pulse Ox O2 Delivery O2 Flow Rate FiO2 02/19/17 13:59 98.2 81 17 121/74 98 Orders Levothyroxine (Synthroid) (02/19/17 15:15) [facility] Medical Decision Making Medical Screen Exam Complete: Yes Emergency Medical Condition: Yes Differential Diagnosis Hypothyroidism, out of medication, other Narrative Course Medical decision-making new para this a 56-year-old woman, 61 kg, who presents with running out of her thyroid medicines. She feels unwell after having run out of her thyroid medicines. She is pretty low dose for her weight. Unfortunately she's not been compliant one of her been able follow-up to get repeat labs when she's been on her medications. Nonetheless, given that she was still pretty symptomatic on her 80 g, and that is a low dose, I think should be okay to increase it to 100. She is going to get insurance in April. States she does not qualify for patient assistance because she now is employed. Nonetheless encouraged her to have repeat levels on her thyroid studies drawn in 8-10 weeks. She'll return for any worsening symptoms. I don't think he'll be any benefit in point thyroid studies now because a well almost certainly be abnormal and will be difficult to interpret whether this because she's been out of her medicines of the dose was low. Diagnosis Primary Impression: Hypothyroidism Patient Instructions: General Instructions Additional Instructions: Takes Synthroid as prescribed. Follow-up with her primary physician for repeat evaluation. You need repeat blood work 8-10 weeks. Return to the emergency department for any new or worsening symptoms. Med/Other Pt SpecificInfo: Prescription(s) given Scripts Levothyroxine (Synthroid)100 Mcg [id number] Mcg PO DAILY #30 TAB Ref 6 Prov:King Mata MD 02/19/17 Disposition: 01 DISCHARGE HOME Condition: Stable King Mata MD Feb 19, 2017 15:41
[2017-02-19] MEDS ORDERED: VENTAER INH (15:52)
== END 2017-02-19 15:58 | disposition home or self-care (01) ==
LOC: NEPD 13:57
DX: E03.9 Hypothyroidism, unspecified (principal); Z91.14 Patient's other noncompliance with medication regimen
CPT/HCPCS: 99283

== ENCOUNTER 2017-06-20 15:54 | Emergency (ER) | payer SELFPAY ==
[~2017-06-20] VITALS: Ht 154.9 cm; Wt 58.0 kg
[~2017-06-20 15:54] MED LIST changes: +LEVO.1 PO; +VENTAER INH
[2017-06-20 15:58] VITALS: BP 122/79; PULSE 104; RESP 20; TEMP 98.7; O2SAT 98
--- NOTE | 2017-06-20 16:08 | PD ---
Physical Exam Date Seen by Provider: Jun 20, 2017 Time Seen by Provider: 16:06 Narrative 56 yo female here for dental pain. Has had this since bitting on a banana. Pain with chewing. No other medical complains. Vitals are stable in triage. Awaiting bed placement. Data Data Last Documented VS Vital Signs Date Time Temp Pulse Resp B/P (MAP) Pulse Ox O2 Delivery O2 Flow Rate FiO2 06/20/17 15:58 98.7 104 20 122/79 (93) [address] [facility] Medical Record Reviewed: Yes Supervised Visit with BRISA: Brendon Weeks Jun 20, 2017 16:07
[2017-06-20] MEDS ORDERED: PERI0.126 SWISH-SPIT (17:20)
[2017-06-20] MEDS ORDERED: AMOX500C PO (17:20)
[2017-06-20] MEDS ORDERED: MAGICPED SWISH-SPIT (17:20)
--- NOTE | 2017-06-20 17:20 | PD ---
HPI Chief Complaint: Oral / Dental Pain or Problem Time Seen by Provider: 17:17 Travel History International Travel<30 days: No Contact w/Intl Traveler<30days: No Traveled to known affect area: No History of Present Illness HPI 56-year-old female presents to emergency Department with complaint of right upper tooth pain times one week. Says she tried eating a banana this morning and couldn't open her mouth all the way because of the pain. Denies throat pain or difficulty swallowing. Denies fever, vomiting. Denies facial edema. Has been taking Tylenol for symptom management. Pain is aggravated with opening her mouth wide. Symptoms are moderate in severity. Allergies to sulfa , doxycycline, ibuprofen, minocycline, tigecycline. Says she gets diarrhea when she takes clindamycin, but she is not allergic to it. No other medical complaints. No other modifying factors or associated signs and symptoms. PFSH Past Medical History Asthma: Yes Cancer: No Cardiovascular Problems: No Gastrointestinal Disorders: No Genitourinary: No Implanted Vascular Access Dvce: No Musculoskeletal: No Neurologic: No Psychiatric: No Reproductive: No Respiratory: Yes (asthma) Thyroid Disease: Yes (hypothyroidism) Past Surgical History Gynecologic Surgery: Yes (exploratory fibroid cyst in uterus 2000) Hysterectomy: No Social History Alcohol Use: No Tobacco Use: No Substance Use: No Allergies-Medications (Allergen,Severity, Reaction): Coded Allergies: Sulfa (Sulfonamide Antibiotics) (Verified Allergy, Severe, Anaphylaxis, ) doxycycline (Verified Allergy, Severe, Hives, 06/20/17) ibuprofen (Verified Allergy, Severe, Anaphylaxis, 06/20/17) minocycline (Verified Allergy, Severe, Hives, 06/20/17) tigecycline (Verified Allergy, Severe, Hives, 06/20/17) Reported Meds & Prescriptions Reported Meds & Active Scripts Active Deltasone (Prednisone) 20 Mg Tab 40 Mg PO DAILY 4 Days start 06/21/2017 Clindamycin (Clindamycin HCl) 150 Mg Cap 450 Mg PO Q6H 10 Days Tramadol (Tramadol HCl) 50 Mg Tab 50 Mg PO Q4-6H PRN Peridex Liq (Chlorhexidine Gluconate (Mouth) Liq) 0.12% Soln 15 Ml SWISH-SPIT BID 10 Days Magic Mouthwash Pediatric/Adult Liq (Lidocaine/Diphenhydr/Alum/Mg/Simeth) 60 Ml Susp 5 Ml SWISH-SPIT Q3HR PRN Each 5mL contains: Diphenydramine 4.5mg, Viscous Lidocaine 2% 10mg, Maalox Advanced Regular Strength 2.7ml Ventolin Hfa 18 GM Inh (Albuterol Sulfate) 90 Mcg/Act Aer 2 Puff INH Q4-6H PRN Synthroid (Levothyroxine Sodium) 100 Mcg Tab 100 Mcg PO DAILY Simvastatin 20 Mg Tab 20 Mg PO DAILY Synthroid (Levothyroxine Sodium) 88 Mcg Tab 88 Mcg PO DAILY Review of Systems Except as stated in HPI: all other systems reviewed are Neg Physical Exam Narrative GENERAL: Well-nourished, well-developed female patient, in no acute distress; afebrile, nontoxic-appearing SKIN: Warm and dry. HEAD: Atraumatic. Normocephalic. No facial edema, erythema. tenderness on palpation to the right cheek. No lymphadenopathy. EYES: Pupils equal and round. No scleral icterus. No injection or drainage. ENT: Mucosa pink and moist. No erythema or exudates. No uvular edema. No uvular , palatal, or tonsillar deviation. Airway patent. MOUTH: Mucous membranes moist, no lesions, tongue and gums appear normal. Poor dentition throughout with multiple dental cavities noted. Patient speaking in full sentences. Tooth #2 with tenderness on palpation; small amount of purulent drainage noted above the tooth and the gingiva is edematous. The area that is draining purulent Drainage is nonfluctuant NECK: Trachea midline. No lymphadenopathy. CARDIOVASCULAR: Regular rate. RESPIRATORY: No accessory muscle use. GASTROINTESTINAL: Rounded. MUSCULOSKELETAL: No obvious deformities. No clubbing. No cyanosis. No edema. NEUROLOGICAL: Awake and alert. Oriented 3. No obvious cranial nerve deficits. Motor grossly within normal limits. Normal speech. PSYCHIATRIC: Appropriate mood and affect; insight and judgment normal. Data Data Last Documented VS Vital Signs Date Time Temp Pulse Resp B/P (MAP) Pulse Ox O2 Delivery O2 Flow Rate FiO2 06/20/17 15:58 98.7 104 20 122/79 (93) 98 Room Air Orders Orders Acetaminophen (Tylenol) (06/20/17 17:30) Clindamycin Inj (Cleocin Inj) (06/20/17 17:45) Prednisone (Deltasone) (06/20/17 17:45) MDM Medical Decision Making Medical Screen Exam Complete: Yes Emergency Medical Condition: Yes Medical Record Reviewed: Yes Differential Diagnosis Dental abscess, dentalgia, dental caries, less likely peritonsillar abscess Narrative Course 56-year-old female with dental abscess noted to tooth #2. No facial edema or erythema. No lymphadenopathy. Patient is afebrile and nontoxic-appearing. She denies fever, vomiting. She is able to open her mouth and is talking freely. No signs of peritonsillar abscess. Patient has excruciating pain in her right cheek when she opens her mouth and is hesitating. 1750: I spoke with Dr. Schmidt, my attending physician and she came to the bedside to evaluate the patient. Dr. Schmidt evaluated the patient and agrees with the treatment plan. Clindamycin IM, Tylenol, and Deltasone administered in the ER. Clindamycin, tramadol, Peridex mouth rinse, and Magic mouthwash prescribed for home. Patient provided emergency dental information sheet. Instructed patient to follow up with dentist in one day. Instructed patient to follow up with primary care provider. Patient verbalizes understanding and agreement with treatment plan. Patient is medically cleared and stable for discharge. Discussed reasons to return to the emergency department. Patient agrees with treatment plan. The patients vital signs are stable and the patient is stable for outpatient follow-up and treatment. Patient discharged home, stable and in no acute distress. Diagnosis Primary Impression: Dental abscess Referrals: Dentist Primary Care Physician Patient Instructions: Dental Abscess (ED), Dental Caries (ED), General Instructions, Toothache (ED) Departure Forms: Tests/Procedures, Work Release Enter return to work date: Jun 22, 2017 Additional Instructions: Complete full course of antibiotics Tylenol as directed and as needed to reduce pain and inflammation Use Magic mouthwash rinse as directed and as needed to decrease pain Use Peridex as directed for oral hygiene Warm or cool compresses to the affected area Follow-up with dentist Follow-up with primary care provider Return to emergency department immediately with worsening of symptoms Med/Other Pt SpecificInfo: Prescription(s) given Scripts Prednisone (Deltasone) 20 Mg Tab 40 MG PO DAILY for 4 Days, TAB 0 Refills start 06/21/2017 Prov: Violeta Luz 06/20/17 Clindamycin (Clindamycin) 150 Mg Cap 450 MG PO Q6H for Infection for 10 Days, CAP 0 Refills Prov: Violeta Luz 06/20/17 Tramadol (Tramadol) 50 Mg Tab 50 MG PO Q4-6H Y for PAIN, #10 TAB 0 Refills Prov: Marianna cShmidt MD 06/20/17 Chlorhexidine Gluconate (Mouth) Liq (Peridex Liq) 0.12% Soln 15 ML SWISH-SPIT BID for 10 Days, #473 ML 0 Refills Prov: Violeta uLz 06/20/17 [id number]-Lsq-Alum-Simeth Liq (Magic Mouthwash Pediatric/Adult Liq) 60 Ml Susp 5 ML SWISH-SPIT Q3HR Y for PAIN SCALE 1 TO 10, #60 ML 0 Refills Each 5mL contains: Diphenydramine 4.5mg, Viscous Lidocaine 2% 10mg, Maalox Advanced Regular Strength 2.7ml Prov: Violeta Luz 06/20/17 Disposition: 01 DISCHARGE HOME Condition: Stable Violeta Luz Jun 20, 2017 17:20
[2017-06-20] MEDS ORDERED: ACETAMINOPHEN 325 MG TAB PO ONE (17:30)
[2017-06-20] MEDS ORDERED: TRAM50TA PO (17:36)
[2017-06-20] MEDS ORDERED: CLIN1CAP5 PO (17:38)
[2017-06-20] MEDS ORDERED: CLINDAMYCIN PHOS 600 MG/4 ML VIAL IM ONE (17:45)
[2017-06-20] MEDS ORDERED: predniSONE 20 MG TAB PO ONE (17:45)
[2017-06-20] MEDS ORDERED: PRED-503 PO (17:52)
== END 2017-06-20 18:40 | disposition home or self-care (01) ==
LOC: NEPK 15:54
DX: K04.7 Periapical abscess without sinus (principal)
CPT/HCPCS: 96372; 99284; J7512

== ENCOUNTER 2017-09-03 13:38 | Emergency (ER) | payer SELFPAY ==
[~2017-09-03] VITALS: Ht 154.9 cm; Wt 57.5 kg
[~2017-09-03 13:38] MED LIST changes: +CLIN150C14 PO; +MAGICPED SWISH-SPIT; +PERI0.126 SWISH-SPIT; +PRED-503 PO; +TRAM50TA PO
[2017-09-03 13:39] VITALS: BP 130/80; PULSE 97; RESP 20; TEMP 98.4; O2SAT 98
[2017-09-03] MEDS ORDERED: TRAM50TA PO (15:16)
[2017-09-03] MEDS ORDERED: ALBUAER3 INH (15:16)
[2017-09-03] MEDS ORDERED: PRED10PA PO (15:16)
--- NOTE | 2017-09-03 15:21 | PD ---
HPI Chief Complaint: Medical Clearance Time Seen by Provider: 15:14 Travel History International Travel<30 days: No Contact w/Intl Traveler<30days: No Traveled to known affect area: No History of Present Illness HPI 57-year-old female presents for evaluation. She reports a history of rheumatoid arthritis with chronic arthralgias in the hands, knees, worse at night, unrelieved with aclv-edl-icinebi NSAIDs. She is also complaining of asthma exacerbation which started 2 weeks ago. She reports wheezing, cough with occasional clear sputum production, unrelieved with her DuoNeb therapy at home. Denies fevers, chills. She does not currently have a primary care physician. No other complaints. PFSH Past Medical History Asthma: Yes Cancer: No Cardiovascular Problems: No Gastrointestinal Disorders: No Genitourinary: No Implanted Vascular Access Dvce: No Musculoskeletal: No Neurologic: No Psychiatric: No Reproductive: No Respiratory: Yes (asthma) Thyroid Disease: Yes (hypothyroidism) Past Surgical History Gynecologic Surgery: Yes (exploratory fibroid cyst in uterus 2000) Hysterectomy: No Social History Alcohol Use: No Tobacco Use: No Substance Use: No Allergies-Medications (Allergen,Severity, Reaction): Coded Allergies: Sulfa (Sulfonamide Antibiotics) (Verified Allergy, Severe, Anaphylaxis, ) doxycycline (Verified Allergy, Severe, Hives, 06/20/17) ibuprofen (Verified Allergy, Severe, Anaphylaxis, 06/20/17) minocycline (Verified Allergy, Severe, Hives, 06/20/17) tigecycline (Verified Allergy, Severe, Hives, 06/20/17) Reported Meds & Prescriptions Reported Meds & Active Scripts Active Proair Hfa 8.5 GM Inh (Albuterol Sulfate) 90 Mcg/Act Aer 2 Puff INH Q4-6H PRN 108 mcg/actuation Tramadol (Tramadol HCl) 50 Mg Tab 50 Mg PO Q6H PRN Prednisone (21) 10 mg tab Dose Pack (Prednisone) 10 Mg Pack 10 Mg PO DIRECTED Tramadol (Tramadol HCl) 50 Mg Tab 50 Mg PO Q4-6H PRN Ventolin Hfa 18 GM Inh (Albuterol Sulfate) 90 Mcg/Act Aer 2 Puff INH Q4-6H PRN Synthroid (Levothyroxine Sodium) 100 Mcg Tab 100 Mcg PO DAILY Simvastatin 20 Mg Tab 20 Mg PO DAILY Synthroid (Levothyroxine Sodium) 88 Mcg Tab 88 Mcg PO DAILY Review of Systems Except as stated in HPI: all other systems reviewed are Neg Physical Exam Narrative GENERAL: Well-nourished female in no acute distress SKIN: Warm and dry. HEAD: Atraumatic. Normocephalic. EYES: Pupils equal and round. No scleral icterus. No injection or drainage. ENT: No nasal bleeding or discharge. Mucous membranes pink and moist. NECK: Trachea midline. No JVD. CARDIOVASCULAR: Regular rate and rhythm. No murmur appreciated. RESPIRATORY: No accessory muscle use. Mild wheezing bilaterally. No crackles. GASTROINTESTINAL: Abdomen soft, non-tender, nondistended. Hepatic and splenic margins not palpable. MUSCULOSKELETAL: No obvious deformities. No clubbing. No cyanosis. No edema. NEUROLOGICAL: Awake and alert. No obvious cranial nerve deficits. Motor grossly within normal limits. Normal speech. Data Data Last Documented VS Vital Signs Date Time Temp Pulse Resp B/P (MAP) Pulse Ox O2 Delivery O2 Flow Rate FiO2 09/03/17 13:39 98.4 97 20 130/80 (97) 98 Room Air MDM Medical Decision Making Medical Screen Exam Complete: Yes Emergency Medical Condition: Yes Medical Record Reviewed: Yes Differential Diagnosis Asthma exacerbation, arthralgias, rheumatoid arthritis, bronchitis, pneumonia Narrative Course The patient is being discharged with a prednisone taper as well as a short course of tramadol for breakthrough pain, refill of her albuterol inhaler. Diagnosis Primary Impression: Asthma exacerbation Additional Impression: Rheumatoid arthritis Additional Instructions: Medication as prescribed. Follow-up with a primary care physician. Return for any emergent medical conditions. Med/Other Pt SpecificInfo: Prescription(s) given Scripts Albuterol 8.5 GM Inh (Proair Hfa 8.5 GM Inh) 90 Mcg/Act Aer 2 PUFF INH Q4-6H Y for SHORTNESS OF BREATH, #1 INHALER 0 Refills 108 mcg/actuation Prov: Emi Garcia MD 09/03/17 Tramadol (Tramadol) 50 Mg Tab 50 MG PO Q6H Y for PAIN, #12 TAB 0 Refills Prov: Emi Garcia MD 09/03/17 Prednisone (21) 10 mg tab Dose Pack (Prednisone (21) 10 mg tab Dose Pack) 10 Mg Pack 10 MG PO DIRECTED for Inflammation, #1 DSPK 0 Refills Prov: Emi Garcia MD 09/03/17 Disposition: 01 DISCHARGE HOME Condition: Stable Kei Royal Sep 03, 2017 15:21
[2017-09-03] MEDS ORDERED: RESP: ALBUTEROL 2.5 MG/IPRATROPIUM 0.5 MG NEB (SCH) INH ONE (15:30)
[2017-09-03] MEDS ORDERED: methylPREDNISolone SOD SUCC 125 MG/2 ML VIAL IM SCH (15:45)
== END 2017-09-03 16:40 | disposition home or self-care (01) ==
LOC: NEPK 13:38
DX: J45.901 Unspecified asthma with (acute) exacerbation (principal); M06.9 Rheumatoid arthritis, unspecified; E03.9 Hypothyroidism, unspecified
CPT/HCPCS: 94664; 96372; 99284; J2930

== ENCOUNTER 2017-11-28 13:39 | Emergency (ER) | payer SELFPAY ==
[~2017-11-28] VITALS: Ht 154.9 cm; Wt 64.6 kg
[~2017-11-28 13:39] MED LIST changes: +ALBUAER3 INH; -CLIN150C14 PO; -MAGICPED SWISH-SPIT; -PERI0.126 SWISH-SPIT; -PRED-503 PO; +PRED10PA PO
[2017-11-28 13:42] VITALS: BP 121/75; PULSE 91; RESP 18; TEMP 99.2; O2SAT 99
[2017-11-28] MEDS ORDERED: SODIUM CHLORIDE 0.9% FLUSH 10 ML FLUSH IVF PRN (14:45)
[2017-11-28] MEDS ORDERED: methylPREDNISolone SOD SUCC 125 MG/2 ML VIAL IV PUSH ONE (14:45)
[2017-11-28 15:05] VITALS: O2SAT 99
[2017-11-28] MEDS: RESP: ALBUTEROL 2.5 MG/IPRATROPIUM 0.5 MG NEB (SCH) INH (15:06)
--- NOTE | 2017-11-28 15:06 | PD ---
HPI Chief Complaint: Respiratory Symptoms Time Seen by Provider: 14:45 Travel History International Travel<30 days: No Contact w/Intl Traveler<30days: No Traveled to known affect area: No History of Present Illness HPI 58 year old F with history of asthma presents in ED presenting with dyspnea and chest tightness X 1 week worsening this morning associated with a clear sputum productive cough at night. She states that this feels similar to her previous asthma exacerbations however she currently is not employed and is having difficulty getting her dounebs and Ventolin due to lack of insurance. She is currently taking OTC Robitussin with no relief of cough. She was last in the ED for the same one month ago and received Solu Medrol shot with relief. She feels that this is stressed induced because she is worried about her employment status. She denies CP, fevers, abd pain, N/V, heart palpitations. She has not received a flu shot and does not want one. Non smoker, no alcohol or drug usage. Risk Factors:Previous asthma exacerbation. Modifying Factors:[None] Associated sign and symptoms: SOB, chest tightness PFSH Past Medical History Asthma: Yes Cancer: No Cardiovascular Problems: No Gastrointestinal Disorders: No Genitourinary: No Implanted Vascular Access Dvce: No Musculoskeletal: No Neurologic: No Psychiatric: No Reproductive: No Respiratory: Yes (asthma) Thyroid Disease: Yes (hypothyroidism) Past Surgical History Gynecologic Surgery: Yes (exploratory fibroid cyst in uterus 2000) Hysterectomy: No Social History Alcohol Use: No Tobacco Use: No Substance Use: No Allergies-Medications (Allergen,Severity, Reaction): Coded Allergies: Sulfa (Sulfonamide Antibiotics) (Verified Allergy, Severe, Anaphylaxis, ) doxycycline (Verified Allergy, Severe, Hives, 11/28/17) ibuprofen (Verified Allergy, Severe, Anaphylaxis, 11/28/17) minocycline (Verified Allergy, Severe, Hives, 11/28/17) tigecycline (Verified Allergy, Severe, Hives, 11/28/17) Reported Meds & Prescriptions Reported Meds & Active Scripts Active Synthroid (Levothyroxine Sodium) 88 Mcg Tab 88 Mcg PO DAILY Review of Systems Except as stated in HPI: all other systems reviewed are Neg Physical Exam Narrative GENERAL: Well nourished appearing female in ED, mildly distressed appears uncomfortable. SKIN: Warm and dry. HEAD: Atraumatic. Normocephalic. EYES: Pupils equal and round. No scleral icterus. No injection or drainage. ENT: No nasal bleeding or discharge. Mucous membranes pink and moist. NECK: Trachea midline. No JVD. CARDIOVASCULAR: Regular rate and rhythm. RESPIRATORY: No accessory muscle use. Mild wheezing throughout. GASTROINTESTINAL: Abdomen soft, non-tender, nondistended. Hepatic and splenic margins not palpable. MUSCULOSKELETAL: Extremities without clubbing, cyanosis, or edema. No obvious deformities. NEUROLOGICAL: Awake and alert. No obvious cranial nerve deficits. Motor grossly within normal limits. Five out of 5 muscle strength in the arms and legs. Normal speech. PSYCHIATRIC: Appropriate mood and affect; insight and judgment normal. Data Data Last Documented VS Vital Signs Date Time Temp Pulse Resp B/P (MAP) Pulse Ox O2 Delivery O2 Flow Rate FiO2 11/28/17 15:28 99 Room Air 11/28/17 15:05 21 11/28/17 13:42 99.2 91 18 121/75 (90) Orders Orders Complete Blood Count With Diff (11/28/17 14:45) Basic Metabolic Panel (Bmp) (11/28/17 14:45) B-Type Natriuretic Peptide (11/28/17 14:45) Iv Access Insert/Monitor (11/28/17 14:45) Ecg Monitoring (11/28/17 14:45) Oximetry (11/28/17 14:45) Oxygen Administration (11/28/17 14:45) Chest, Single Ap (11/28/17 14:45) Sodium Chloride 0.9% Flush (Ns Flush) (11/28/17 14:45) Methylprednisolone So Succ Inj (Solumedr (11/28/17 14:45) Albuterol-Ipratropium Neb (Duoneb Neb) (11/28/17 14:45) Labs Laboratory Tests Test 11/28/17 15:15 White Blood Count 6.5 TH/MM3 Red Blood Count 4.84 MIL/MM3 Hemoglobin 12.5 GM/DL Hematocrit 40.6 % Mean Corpuscular Volume 83.7 FL Mean Corpuscular Hemoglobin 25.9 PG Mean Corpuscular Hemoglobin Concent 30.9 % Red Cell Distribution Width 14.0 % Platelet Count 270 TH/MM3 Mean Platelet Volume 7.9 FL Neutrophils (%) (Auto) 62.9 % Lymphocytes (%) (Auto) 27.7 % Monocytes (%) (Auto) 5.8 % Eosinophils (%) (Auto) 1.5 % Basophils (%) (Auto) 2.1 % Neutrophils # (Auto) 4.1 TH/MM3 Lymphocytes # (Auto) 1.8 TH/MM3 Monocytes # (Auto) 0.4 TH/MM3 Eosinophils # (Auto) 0.1 TH/MM3 Basophils # (Auto) 0.1 TH/MM3 CBC Comment DIFF FINAL Differential Comment Blood Urea Nitrogen 14 MG/DL Creatinine 0.95 MG/DL Random Glucose 105 MG/DL Calcium Level 8.6 MG/DL Sodium Level 141 MEQ/L Potassium Level 3.4 MEQ/L Chloride Level 109 MEQ/L Carbon Dioxide Level 27.5 MEQ/L Anion Gap 5 MEQ/L Estimat Glomerular Filtration Rate 73 ML/MIN MDM Medical Decision Making Medical Screen Exam Complete: Yes Emergency Medical Condition: Yes Interpretation(s) Laboratory Tests Test 11/28/17 15:15 Mean Corpuscular Hemoglobin 25.9 PG (27.0-34.0) Mean Corpuscular Hemoglobin Concent 30.9 % (32.0-36.0) Basophils (%) (Auto) 2.1 % (0.0-2.0) Potassium Level 3.4 MEQ/L (3.5-5.1) Chloride Level 109 MEQ/L (98-107) Estimat Glomerular Filtration Rate 73 ML/MIN (>89) Last 24 hours Impressions Chest X-Ray 11/28/17 1445 Signed Impressions: Service Date/Time: Tuesday, November 28, 2017 15:18 - CONCLUSION: No acute disease. Chacho Hanley Jr., MD Differential Diagnosis Asthma exacerbation vs pneumonia vs URI vs COPD vs CHF Narrative Course Chest x-ray did not show any signs of acute pulmonary processes. Patient was given nebulizer in the ER with improvement symptoms. At this point, my plan would be to treat her symptomatically and have her follow-up with primary care doctor. Return for any worsening in symptoms as needed. The plan has been discussed with her and she states understanding. In addition, she is requesting Tessalon Perles because she states that her coughing was what triggered this whole issue. I have notified her that Tessalon Perles alone a likely not to help with the underlying wheezing. She states understanding as well. Diagnosis Primary Impression: Bronchitis Med/Other Pt SpecificInfo: Prescription(s) given Scripts Benzonatate (Tessalon Perles) 100 Mg Cap 100 MG PO TID Y for COUGH, #12 CAP 0 Refills Prov: Zuhair Nair MD 11/28/17 Prednisone (Prednisone) 50 Mg Tab 50 MG PO DAILY for 3 Days, #3 TAB 0 Refills Prov: Zuhair Nair MD 11/28/17 Albuterol 8.5 GM Inh (Proair Hfa 8.5 GM Inh) 90 Mcg/Act Aer 2 PUFF INH Q4-6H Y for SHORTNESS OF BREATH, #1 INHALER 0 Refills 108 mcg/actuation Prov: Zuhair Nair MD 11/28/17 Disposition: 01 DISCHARGE HOME Condition: Stable Zuhair Nair MD Nov 28, 2017 15:06
[2017-11-28 15:25] LABS: AUTOMATED NEUTROPHIL # 4.1 TH/MM3 (1.8-7.7); BASOPHIL # 0.1 TH/MM3 (0-0.2); BASOPHIL % 2.1 % (0.0-2.0); EOSINOPHIL # 0.1 TH/MM3 (0-0.4); EOSINOPHIL % 1.5 % (0.0-4.0); HEMATOCRIT 40.6 % (35.0-46.0); HEMOGLOBIN 12.5 GM/DL (11.6-15.3); LYMPH % 27.7 % (9.0-44.0); LYMPHOCYTE # 1.8 TH/MM3 (1.0-4.8); MEAN CELL VOLUME 83.7 FL (80.0-100.0); MEAN CORPUSCULAR HEMOGLOBIN 25.9 PG (27.0-34.0); MEAN CORPUSCULAR HGB CONC 30.9 % (32.0-36.0); MEAN PLATELET VOLUME 7.9 FL (7.0-11.0); MONO % 5.8 % (0.0-8.0); MONOCYTE # 0.4 TH/MM3 (0-0.9); NEUT % 62.9 % (16.0-70.0); PLATELET COUNT 270 TH/MM3 (150-450); RED BLOOD COUNT 4.84 MIL/MM3 (4.00-5.30); WHITE BLOOD COUNT 6.5 TH/MM3 (4.0-11.0)
[2017-11-28 15:28] VITALS: O2SAT 99
--- NOTE | 2017-11-28 15:33 | RADRPT ---
EXAM DATE/TIME: 11/28/2017 15:18 [facility] COMPARISON: CHEST SINGLE AP, August 24, 2016, 15:10. INDICATIONS : Shortness of breath. MEDICAL HISTORY : Asthma. SURGICAL HISTORY : None. ENCOUNTER: Initial ACUITY: 1 day PAIN SCORE: 0/10 LOCATION: Bilateral chest FINDINGS: A single view of the chest demonstrates the lungs to be symmetrically aerated without evidence of mas s, infiltrate or effusion. The cardiomediastinal contours are unremarkable. Osseous structures are intact. CONCLUSION: No acute disease. Chacho Hanley Jr., MD on November 28, 2017 at 15:29 Board Certified Radiologist. This report was verified electronically.
[2017-11-28 15:37] LABS: CALCIUM 8.6 MG/DL (8.5-10.1)
[2017-11-28 15:38] LABS: BICARBONATE 27.5 MEQ/L (21.0-32.0)
[2017-11-28 15:41] LABS: CREATININE 0.95 MG/DL (0.50-1.00)
[2017-11-28] MEDS ORDERED: ALBUAER3 INH (15:50)
[2017-11-28] MEDS ORDERED: PRED50 PO (15:50)
[2017-11-28] MEDS ORDERED: BENZ100 PO (15:50)
[2017-11-28 16:01] VITALS: BP 120/79
[2017-11-28] MEDS ORDERED: ALBU0.08 NEB (16:13)
--- NOTE | 2017-11-28 17:23 | EKG ---
Date Performed: 11/28/2017 Time Performed: 13:58:08 PTAGE: 57 years EKG: Sinus rhythm LOW QRS VOLTAGE IN PRECORDIAL LEADS BORDERLINE ECG No significant change from prior electrocardiogra m. PREVIOUS TRACING : 11/12/2016 06.21 DOCTOR: Lewis Shea Interpretating Date/Time 11/28/2017 17:21:35
[2017-11-28] MEDS ORDERED: RESP: ALBUTEROL CONC 2.5 MG/0.5 ML NEB NEB SCH (22:00)
== END 2017-11-28 16:32 | disposition home or self-care (01) ==
LOC: PHED 13:39
DX: J40 Bronchitis, not specified as acute or chronic (principal); E03.9 Hypothyroidism, unspecified; R06.02 Shortness of breath
CPT/HCPCS: 71045; 80048; 83880; 85025; 93005; 94640; 94664; 96374; 99284; J2930

== ENCOUNTER 2018-01-06 09:37 | Emergency (ER) | payer SELFPAY ==
[~2018-01-06] VITALS: Ht 154.9 cm; Wt 60.0 kg
[~2018-01-06 09:37] MED LIST changes: +ALBU0.08 NEB; +BENZ100 PO; -LEVO.1 PO; -PRED10PA PO; +PRED50 PO; -SIMV20TA PO; -TRAM50TA PO; -VENTAER INH
[2018-01-06 09:41] VITALS: BP 132/90; PULSE 74; RESP 18; TEMP 98.5; O2SAT 100
[2018-01-06] MEDS ORDERED: SODIUM CHLOR 0.9% 1000 ML INJ 1,000 ML IV SCH (10:12)
[2018-01-06] MEDS ORDERED: SODIUM CHLORIDE 0.9% FLUSH 10 ML FLUSH IV FLUSH PRN (10:15)
--- NOTE | 2018-01-06 10:18 | PD ---
HPI Chief Complaint: [employer] Problem/Complaint Time Seen by Provider: 09:49 Travel History International Travel<30 days: No Contact w/Intl Traveler<30days: No Traveled to known affect area: No History of Present Illness HPI 57-year-old female presents emergency department with complaints of progressively worsening right hip and pelvic pain over the past 6 weeks. Patient denies urinary symptoms, or vaginal discharge. Patient states she is practiced abstinence for the past 15 years. Patient denies any specific injury. Patient states her pain now to the point where she has decreased range of motion in the right hip, and it hurts to sit on that side or lay on that side. Patient denies numbness, tingling, or radicular pain into the right leg. Patient denies weakness other than from pain. There is no rash. She has no nausea, vomiting, or fever. No recent medications have been taken. Pain is 8 out of 10 and worse with certain movements and ambulation. Patient has had complaints of mild constipation recently. Patient has multiple allergies including sulfa, clindamycin, doxycycline, ibuprofen, minocycline, and Tygacil in. PFSH Past Medical History Asthma: Yes Cancer: No Cardiovascular Problems: No Gastrointestinal Disorders: No Genitourinary: No Implanted Vascular Access Dvce: No Musculoskeletal: No Neurologic: No Psychiatric: No Reproductive: No Respiratory: Yes (asthma) Thyroid Disease: Yes (hypothyroidism) Past Surgical History Gynecologic Surgery: Yes (exploratory fibroid cyst in uterus 2000) Hysterectomy: No Social History Alcohol Use: No Tobacco Use: No Substance Use: No Allergies-Medications (Allergen,Severity, Reaction): Coded Allergies: Sulfa (Sulfonamide Antibiotics) (Verified Allergy, Severe, Anaphylaxis, 09/15) clindamycin (Verified Allergy, Severe, 01/06/18) doxycycline (Verified Allergy, Severe, Hives, 01/06/18) ibuprofen (Verified Allergy, Severe, Anaphylaxis, 01/06/18) minocycline (Verified Allergy, Severe, Hives, 01/06/18) tigecycline (Verified Allergy, Severe, Hives, 01/06/18) Reported Meds & Prescriptions Reported Meds & Active Scripts Active Albuterol Neb (Albuterol Sulfate) 2.5 Mg/3 Ml Neb 2.5 Mg NEB Q4HR NEB While awake Tessalon Perles (Benzonatate) 100 Mg Cap 100 Mg PO TID PRN Prednisone 50 Mg Tab 50 Mg PO DAILY 3 Days Proair Hfa 8.5 GM Inh (Albuterol Sulfate) 90 Mcg/Act Aer 2 Puff INH Q4-6H PRN 108 mcg/actuation Synthroid (Levothyroxine Sodium) 88 Mcg Tab 88 Mcg PO DAILY Review of Systems Except as stated in HPI: all other systems reviewed are Neg General / Constitutional: No: Fever, Chills Eyes: No: Visual changes HENT: No: Headaches Cardiovascular: No: Chest Pain or Discomfort Respiratory: No: Shortness of Breath Gastrointestinal: No: Abdominal Pain Genitourinary: No: Urgency, Frequency, Dysuria, Hematuria, Pelvic Pain, Flank Pain, Discharge, Vaginal Bleeding Musculoskeletal: Positive: Arthralgias, Limited ROM, Pain (See history of present illness per) Skin: No Rash Neurologic: No: Weakness Psychiatric: No: Depression Endocrine: No: Polydipsia Hematologic/Lymphatic: No: Easy Bruising Physical Exam Narrative GENERAL: Patient appears in mild to moderate distress, especially with movement or ambulation. SKIN: Warm and dry. Normal color. Normal turgor. No rash. Patient has a firm rubbery lump to the left middle buttock without signs of erythema or abscess consistent with lipoma. HEAD: Atraumatic. Normocephalic. EYES: Pupils equal and round. No scleral icterus. No injection or drainage. ENT: No nasal bleeding or discharge. Mucous membranes pink and moist. Pharynx is clear. Airways patent. NECK: Trachea midline. Supple and nontender. CARDIOVASCULAR: Regular rate and rhythm. RESPIRATORY: No accessory muscle use. Clear to auscultation. Breath sounds equal bilaterally. GASTROINTESTINAL: Abdomen soft, non-tender, nondistended. Hepatic and splenic margins not palpable. No CVA tenderness. MUSCULOSKELETAL: Extremities without clubbing, cyanosis, or edema. No obvious deformities. No spinal tenderness. Patient has pain with palpation along the right sacroiliac region as well as the anterior right hip and right posterior greater trochanter. Patient is able to stand on the right leg with pain. She has limited hip flexion or lateral extension. Patient has increased pain with internal and external rotation of the right hip, but not with compression. NEUROLOGICAL: Awake and alert. No obvious cranial nerve deficits. Motor grossly within normal limits. Five out of 5 muscle strength in the arms and legs. Normal speech. PSYCHIATRIC: Appropriate mood and affect; insight and judgment normal. Data Data Last Documented VS Vital Signs Date Time Temp Pulse Resp B/P (MAP) Pulse Ox O2 Delivery O2 Flow Rate FiO2 01/06/18 10:47 98 01/06/18 09:41 98.5 74 18 132/90 (104) Orders Orders Complete Blood Count With Diff (01/06/18 10:12) Comprehensive Metabolic Panel (01/06/18 10:12) Urinalysis - C+S If Indicated (01/06/18 10:12) Iv Access Insert/Monitor (01/06/18 10:12) Ecg Monitoring (01/06/18 10:12) Oximetry (01/06/18 10:12) Sodium Chlor 0.9% 1000 Ml Inj (Ns 1000 M (01/06/18 10:12) Sodium Chloride 0.9% Flush (Ns Flush) (01/06/18 10:15) Ct Hip W Iv Contrast (01/06/18 ) Ct Pelvis W Iv Contrast(Rout) (01/06/18 ) C-Reactive Protein (Crp) (01/06/18 10:12) Westergren Sedimentation Rate (01/06/18 10:12) Iohexol 350 Inj (Omnipaque 350 Inj) (01/06/18 12:10) Labs Laboratory Tests Test 01/06/18 10:25 White Blood Count 6.0 TH/MM3 Red Blood Count 4.38 MIL/MM3 Hemoglobin 12.0 GM/DL Hematocrit 35.9 % Mean Corpuscular Volume 82.0 FL Mean Corpuscular Hemoglobin 27.4 PG Mean Corpuscular Hemoglobin Concent 33.4 % Red Cell Distribution Width 14.8 % Platelet Count 301 TH/MM3 Mean Platelet Volume 7.6 FL Neutrophils (%) (Auto) 57.7 % Lymphocytes (%) (Auto) 31.0 % Monocytes (%) (Auto) 8.0 % Eosinophils (%) (Auto) 2.8 % Basophils (%) (Auto) 0.5 % Neutrophils # (Auto) 3.4 TH/MM3 Lymphocytes # (Auto) 1.9 TH/MM3 Monocytes # (Auto) 0.5 TH/MM3 Eosinophils # (Auto) 0.2 TH/MM3 Basophils # (Auto) 0.0 TH/MM3 CBC Comment DIFF FINAL Differential Comment Erythrocyte Sedimentation Rate 15 mm/hr Urine Color YELLOW Urine Turbidity CLEAR Urine pH 5.5 Urine Specific [place] 1.013 Urine Protein NEG mg/dL Urine Glucose (UA) NEG mg/dL Urine Ketones NEG mg/dL Urine Occult Blood NEG Urine Nitrite NEG Urine Bilirubin NEG Urine Urobilinogen LESS THAN 2.0 MG/DL Urine Leukocyte Esterase NEG Urine RBC LESS THAN 1 /hpf Urine WBC 1 /hpf Urine Squamous Epithelial Cells 1 /hpf Urine Mucus FEW /lpf Microscopic Urinalysis Comment CULT NOT INDICATED Blood Urea Nitrogen 12 MG/DL Creatinine 0.89 MG/DL Random Glucose 80 MG/DL Total Protein 6.7 GM/DL Albumin 3.7 GM/DL Calcium Level 9.2 MG/DL Alkaline Phosphatase 97 U/L Aspartate Amino Transf (AST/SGOT) 12 U/L Alanine Aminotransferase (ALT/SGPT) 15 U/L Total Bilirubin 0.5 MG/DL Sodium Level 143 MEQ/L Potassium Level 3.5 MEQ/L Chloride Level 109 MEQ/L Carbon Dioxide Level 27.5 MEQ/L Anion Gap 7 MEQ/L Estimat Glomerular Filtration Rate 79 ML/MIN C-Reactive Protein LESS THAN 0.29 MG/DL MDM Medical Decision Making Medical Screen Exam Complete: Yes Emergency Medical Condition: Yes Differential Diagnosis Right hip pain. Sacroiliitis. Right hip arthritis. Avascular necrosis. Metastatic lesion. Iliopsoas syndrome. Narrative Course Labs ordered including CBC, CMP, sedimentation rate, and CRP and urinalysis CT of the right hip with IV contrast as well as pelvis with IV contrast is ordered CBC is unremarkable. Urinalysis is unremarkable. Patient is given 1000 mL's normal saline bolus. Sedimentation rate is not elevated at 15. Chemistries show chloride 109, GFR 79, AST 12 otherwise unremarkable. CRP is less than 0.[address] shows: CT of the right hip shows: CONCLUSION: There is a focal stranding in the subcutaneous fat of the right buttock, nonspecific. This measures about 2.3 cm in diameter and could be related to prior injection or minimal inflammatory change. No fluid collections. Remainder of exam unremarkable. Findings are reviewed reviewed with Dr. Wilson. He recommends trial of Keflex 10 days, hot compresses, and pain management. Findings are then discussed with the patient in further history reveals the patient received an injection in this area approximately 6 weeks ago for an asthma exacerbation consisting of Solu-Medrol. I explained the patient this may have been the causative agent of her current issue. The treatment remains the same as documented. Patient will be treated with Keflex 500 mg 3 times daily 10 days. Patient is given tramadol 50 mg 1 every 6 hours as needed pain #20. Patient is to use hot compresses to the area frequently as discussed. Patient will follow up with local primary care physician as discussed to ensure improvement. Patient can return to emergency department if symptoms worsen as needed. Diagnosis Primary Impression: Infected fluid collection with fistula Referrals: [facility] 1 week Patient Instructions: General Instructions Additional Instructions: Patient will be treated with Keflex 500 mg 3 times daily 10 days. Patient is given tramadol 50 mg 1 every 6 hours as needed pain #20. Patient is to use hot compresses to the area frequently as discussed. Patient will follow up with local primary care physician as discussed to ensure improvement. Patient can return to emergency department if symptoms worsen as needed. Med/Other Pt SpecificInfo: Prescription(s) given Disposition: 01 DISCHARGE HOME Condition: Stable Av Lozoya Jan 06, 2018 10:18
[2018-01-06 10:47] VITALS: O2SAT 98
[2018-01-06 10:48] LABS: AUTOMATED NEUTROPHIL # 3.4 TH/MM3 (1.8-7.7); BASOPHIL % 0.5 % (0.0-2.0); EOSINOPHIL # 0.2 TH/MM3 (0-0.4); EOSINOPHIL % 2.8 % (0.0-4.0); HEMATOCRIT 35.9 % (35.0-46.0); LYMPHOCYTE # 1.9 TH/MM3 (1.0-4.8); MEAN CORPUSCULAR HEMOGLOBIN 27.4 PG (27.0-34.0); MEAN CORPUSCULAR HGB CONC 33.4 % (32.0-36.0); MEAN PLATELET VOLUME 7.6 FL (7.0-11.0); MONOCYTE # 0.5 TH/MM3 (0-0.9); NEUT % 57.7 % (16.0-70.0); PLATELET COUNT 301 TH/MM3 (150-450); RED BLOOD COUNT 4.38 MIL/MM3 (4.00-5.30); RED CELL DISTRIBUTION WIDTH 14.8 % (11.6-17.2)
[2018-01-06 10:51] LABS: BILIRUBIN, URINE NEG (NEG); BLOOD, URINE NEG (NEG); GLUCOSE,URINE NEG (NEG); KETONE, URINE NEG (NEG); MUCUS URINE FEW /lpf (OCC); NITRITE,URINE NEG (NEG); PH, URINE 5.5 (5.0-8.5); SQUAMOUS EPITHELIAL CELL URINE 1 /hpf (0-5); URINE COLOR YELLOW (YELLW/STRAW); URINE LEUKOCYTE ESTERASE NEG (NEG)
[2018-01-06 11:17] LABS: ALBUMIN 3.7 GM/DL (3.4-5.0); AST (GOT) 12 U/L (15-37); BICARBONATE 27.5 MEQ/L (21.0-32.0); BLOOD UREA NITROGEN 12 MG/DL (7-18); CALCIUM 9.2 MG/DL (8.5-10.1); CHLORIDE 109 MEQ/L (98-107); CREATININE 0.89 MG/DL (0.50-1.00); GLOMERULAR FILTRATION RATE 79 ML/MIN (>89); GLUCOSE,RANDOM 80 MG/DL (74-106); SODIUM (NA) 143 MEQ/L (136-145)
[2018-01-06 11:18] LABS: ALT (GPT) 15 U/L (10-53); C-REACTIVE PROTEIN LESS THAN 0.29 MG/DL (0.00-0.30)
[2018-01-06 11:20] LABS: ALKALINE PHOSPHATASE 97 U/L (45-117); TOTAL BILIRUBIN ADULT 0.5 MG/DL (0.2-1.0); TOTAL PROTEIN 6.7 GM/DL (6.4-8.2)
[2018-01-06] MEDS ORDERED: IOHEXOL 350 MG/ML 10 ML VIAL (for RAD DIAG) IVCONTRAST ONE (12:10)
--- NOTE | 2018-01-06 12:35 | RADRPT ---
EXAM DATE/TIME: 01/06/2018 11:49 [facility] COMPARISON: No previous studies available for comparison. INDICATIONS : Right buttock pain for six weeks. IV CONTRAST: 77 cc Omnipaque 350 (iohexol) IV RADIATION DOSE: 25.64 CTDIvol (mGy) ; Combined studies MEDICAL HISTORY : None SURGICAL HISTORY : oophorectomy ENCOUNTER: Initial ACUITY: 1 month PAIN SCALE: 7/10 LOCATION: Right buttock TECHNIQUE: Volumetric scanning of the hip was performed. Using automated exposure control and adjustment of the mA and/or kV according to patient size, radiation dose was kept as low as reasonably achievable to o btain optimal diagnostic quality images. DICOM format image data is available electronically for rev iew and comparison. FINDINGS: BONES: No evidence of fracture. Alignment is within normal limits. JOINTS: No evidence of joint narrowing or effusion. SOFT TISSUES: A small irregularly marginated fluid collection is identified within the subcutaneous fat of the high right buttocks region. There appears to be a small sinus tract extending to the skin surface the col lection measures 2.2 cm in greatest dimension. Muscles, tendons and neurovascular structures are otherwise grossly unremarkable. No evidence of mass or foreign body. CONCLUSION: 1. 2.2 cm irregularly marginated fluid collection in the subcutaneous fat of the high right buttocks region with small sinus tract extending to the skin surface. This is characteristic of a small subcut aneous abscess. 2. Otherwise normal evaluation of the pelvis. Joe Yang MD on January 06, 2018 at 12:26 Board Certified Radiologist. This report was verified electronically.
--- NOTE | 2018-01-06 12:36 | RADRPT ---
EXAM DATE/TIME: 01/06/2018 11:49 [facility] COMPARISON: No previous studies available for comparison. INDICATIONS : Right buttock pain for six weeks. IV CONTRAST: 77 cc Omnipaque 350 (iohexol) IV ORAL CONTRAST: No oral contrast ingested. RADIATION DOSE: 25.64 CTDIvol (mGy) ; Combined studies MEDICAL HISTORY : None SURGICAL HISTORY : oophorectomy ENCOUNTER: Initial ACUITY: 1 month PAIN SCALE: 7/10 LOCATION: Right buttock TECHNIQUE: Volumetric scanning of the pelvis was performed. Using automated exposure control and adjustment of t he mA and/or kV according to patient size, radiation dose was kept as low as reasonably achievable to obtain optimal diagnostic quality images. DICOM format image data is available electronically for review and comparison. FINDINGS: BOWEL/MESENTERY: The visualized small and large bowel demonstrate no acute abnormality. There is no free fluid. BLADDER: There is no wall thickening or mass. RETROPERITONEUM: There is no aneurysm or lymphadenopathy. REPRODUCTIVE: Within normal limits. INGUINAL: There is no lymphadenopathy or hernia. MUSCULOSKELETAL: 2.7cm focal fat stranding in the subcutaneous fat of the right buttock region. CONCLUSION: There is a focal stranding in the subcutaneous fat of the right buttock, nonspecific. This measures a bout 2.3 cm in diameter and could be related to prior injection or minimal inflammatory change. No fl uid collections. Remainder of exam unremarkable. Temo Null MD on January 06, 2018 at 12:28 Board Certified Radiologist. This report was verified electronically.
[2018-01-06] MEDS ORDERED: CEPH-460 PO (13:08)
[2018-01-06] MEDS ORDERED: TRAM50TA PO (13:08)
== END 2018-01-06 13:25 | disposition home or self-care (01) ==
LOC: NEPD 09:37
DX: L98.8 Other specified disorders of the skin and subcutaneous tissue (principal); E03.9 Hypothyroidism, unspecified
CPT/HCPCS: 72193; 73701; 80053; 81001; 85025; 85652; 86140; 99284; J7030; Q9967

== ENCOUNTER 2018-02-09 14:20 | Emergency (ER) | payer SELFPAY ==
[~2018-02-09 14:20] MED LIST changes: +CEPH-460 PO; +TRAM50TA PO
[2018-02-09 14:23] VITALS: BP 126/71; PULSE 86; RESP 16; TEMP 98.1; O2SAT 100
[2018-02-09] MEDS ORDERED: ASPIRIN 325 MG TAB PO ONE (15:00)
[2018-02-09] MEDS ORDERED: MORPHINE SULFATE 4 MG/ML INJ IV PUSH ONE (15:00)
[2018-02-09] MEDS ORDERED: SODIUM CHLORID 0.9% 500 ML INJ 500 ML IV ONE (15:00)
[2018-02-09] MEDS ORDERED: ONDANSETRON HCL 4 MG/2 ML VIAL IV PUSH ONE (15:00)
[2018-02-09 15:27] LABS: AUTOMATED NEUTROPHIL # 5.5 TH/MM3 (1.8-7.7); BASOPHIL % 0.4 % (0.0-2.0); EOSINOPHIL # 0.1 TH/MM3 (0-0.4); EOSINOPHIL % 1.3 % (0.0-4.0); HEMATOCRIT 36.9 % (35.0-46.0); HEMOGLOBIN 12.3 GM/DL (11.6-15.3); LYMPH % 21.8 % (9.0-44.0); LYMPHOCYTE # 1.7 TH/MM3 (1.0-4.8); MEAN CELL VOLUME 81.7 FL (80.0-100.0); MEAN CORPUSCULAR HEMOGLOBIN 27.2 PG (27.0-34.0); MEAN CORPUSCULAR HGB CONC 33.3 % (32.0-36.0); MONOCYTE # 0.4 TH/MM3 (0-0.9); NEUT % 71.5 % (16.0-70.0); PLATELET COUNT 278 TH/MM3 (150-450); RED BLOOD COUNT 4.51 MIL/MM3 (4.00-5.30); RED CELL DISTRIBUTION WIDTH 14.2 % (11.6-17.2); WHITE BLOOD COUNT 7.7 TH/MM3 (4.0-11.0)
[2018-02-09 15:43] LABS: PROTHROMBIN TIME - PATIENT 10.2 SEC (9.8-11.6)
[2018-02-09 15:45] LABS: BICARBONATE 27.7 MEQ/L (21.0-32.0); CALCIUM 8.6 MG/DL (8.5-10.1); CHLORIDE 108 MEQ/L (98-107); CREATININE 1.01 MG/DL (0.50-1.00); GLOMERULAR FILTRATION RATE 68 ML/MIN (>89); GLUCOSE,RANDOM 140 MG/DL (74-106); MAGNESIUM 2.1 MG/DL (1.5-2.5); SODIUM (NA) 143 MEQ/L (136-145)
[2018-02-09 15:49] LABS: BLOOD UREA NITROGEN 16 MG/DL (7-18); TROPONIN I LESS THAN 0.02 NG/ML (0.02-0.05)
--- NOTE | 2018-02-09 16:04 | PD ---
HPI Chief Complaint: Cardiac Complaint Time Seen by Provider: 14:30 Travel History International Travel<30 days: No Contact w/Intl Traveler<30days: No Traveled to known affect area: No History of Present Illness HPI 57-year-old female that presents to the ED for evaluation of dental pain. Per patient she has been having right upper jaw pain with swelling since last night. Per patient the pain more severe today. Per patient she went to an event today and she had to tell them that she had to come here because the pain was getting too bad for her. Per patient last night she noted that throughout the night she had an episode of "palpitations". When asked what the patient means by this she states that her heart felt like it was palpitating. Per patient he went away on its own. She did took some aspirin that seemed to improve it. She denies any pain at this time or any shortness of breath. No history of heart disease. She did took multiple aspirins last night to help with the pain with minimal improvement of the tooth pain but improvement of the palpitations. She states that she has not had any palpitations or chest discomfort since last night. She has an allergy to sulfa, clindamycin and ibuprofen. She denies any fevers chills or sweats. Per patient a pain of her mouth is 7 out of 10. She states that she has had issues with her mouth before. Multiple allergies to different medications. PFSH Past Medical History Asthma: Yes Cancer: No Cardiovascular Problems: No Gastrointestinal Disorders: No Genitourinary: No Implanted Vascular Access Dvce: No Musculoskeletal: No Neurologic: No Psychiatric: No Reproductive: No Respiratory: Yes (asthma) Thyroid Disease: Yes (hypothyroidism) Past Surgical History Gynecologic Surgery: Yes (exploratory fibroid cyst in uterus 2000) Hysterectomy: No Social History Alcohol Use: No Tobacco Use: No Substance Use: No Allergies-Medications (Allergen,Severity, Reaction): Coded Allergies: Sulfa (Sulfonamide Antibiotics) (Verified Allergy, Severe, Anaphylaxis, 09/15) clindamycin (Verified Allergy, Severe, 01/06/18) ibuprofen (Verified Allergy, Severe, Anaphylaxis, 01/06/18) minocycline (Verified Allergy, Severe, Hives, 01/06/18) tetracycline (Verified Allergy, Unknown, 02/09/18) Reported Meds & Prescriptions Reported Meds & Active Scripts Active Hydrocodone-Acetamin 5-325 mg (Hydrocodone/Acetaminophen) 5 Mg-325 Mg Tablet 1 Tab PO Q6HR PRN Magic Mouthwash Adult Liq (Multi-Ingredient Mouthwash/Gargle) 120 Ml Susp 5 Ml SWISH-SWAL ACHS Each 5mL contains: Nystatin 200,000units, Diphenhydramine 4.25mg, Viscous Lidocaine 10mg, Varela syrup 0.8 mL Amoxicillin 500 Mg Cap 500 Mg PO TID 10 Days Albuterol Neb (Albuterol Sulfate) 2.5 Mg/3 Ml Neb 2.5 Mg NEB Q4HR NEB While awake Proair Hfa 8.5 GM Inh (Albuterol Sulfate) 90 Mcg/Act Aer 2 Puff INH Q4-6H PRN 108 mcg/actuation Synthroid (Levothyroxine Sodium) 88 Mcg Tab 88 Mcg PO DAILY Review of Systems Except as stated in HPI: all other systems reviewed are Neg Physical Exam Narrative GENERAL: SKIN: Warm and dry. HEAD: Atraumatic. Normocephalic. EYES: Pupils equal and round. No scleral icterus. No injection or drainage. ENT: No nasal bleeding or discharge. Mucous membranes pink and moist. Tongue is midline. No uvula deviation. Dental: Patient has reproducible pain on the second and third molar of the right upper jaw. NECK: Trachea midline. No JVD. CARDIOVASCULAR: Regular rate and rhythm. No murmurs, S3, S4. RESPIRATORY: No accessory muscle use. Clear to auscultation. Breath sounds equal bilaterally. GASTROINTESTINAL: Abdomen soft, non-tender, nondistended. Hepatic and splenic margins not palpable. MUSCULOSKELETAL: Extremities without clubbing, cyanosis, or edema. No obvious deformities. Full range of motion of the upper and lower extremities bilaterally. 2+ pulses bilaterally. NEUROLOGICAL: Awake and alert. No obvious cranial nerve deficits. Motor grossly within normal limits. Five out of 5 muscle strength in the arms and legs. Normal speech. PSYCHIATRIC: Appropriate mood and affect; insight and judgment normal. Data Data Last Documented VS Vital Signs Date Time Temp Pulse Resp B/P (MAP) Pulse Ox O2 Delivery O2 Flow Rate FiO2 02/09/18 14:23 98.1 86 16 126/71 (89) 100 Orders Orders Electrocardiogram (02/09/18 14:46) Basic Metabolic Panel (Bmp) (02/09/18 14:46) Ckmb (Isoenzyme) Profile (02/09/18 14:46) Complete Blood Count With Diff (02/09/18 14:46) Magnesium (Mg) (02/09/18 14:46) Prothrombin Time / Inr (Pt) (02/09/18 14:46) Act Partial Throm Time (Ptt) (02/09/18 14:46) Troponin I (02/09/18 14:46) Ecg Monitoring (02/09/18 14:46) Iv Access Insert/Monitor (02/09/18 14:46) Aspirin (Aspirin) (02/09/18 15:00) Morphine Inj (Morphine Inj) (02/09/18 15:00) Sodium Chlorid 0.9% 500 Ml Inj (Ns 500 M (02/09/18 15:00) Ondansetron Inj (Zofran Inj) (02/09/18 15:00) Ed Discharge Order (02/09/18 16:08) Labs Laboratory Tests Test 02/09/18 15:20 White Blood Count 7.7 TH/MM3 Red Blood Count 4.51 MIL/MM3 Hemoglobin 12.3 GM/DL Hematocrit 36.9 % Mean Corpuscular Volume 81.7 FL Mean Corpuscular Hemoglobin 27.2 PG Mean Corpuscular Hemoglobin Concent 33.3 % Red Cell Distribution Width 14.2 % Platelet Count 278 TH/MM3 Mean Platelet Volume 8.0 FL Neutrophils (%) (Auto) 71.5 % Lymphocytes (%) (Auto) 21.8 % Monocytes (%) (Auto) 5.0 % Eosinophils (%) (Auto) 1.3 % Basophils (%) (Auto) 0.4 % Neutrophils # (Auto) 5.5 TH/MM3 Lymphocytes # (Auto) 1.7 TH/MM3 Monocytes # (Auto) 0.4 TH/MM3 Eosinophils # (Auto) 0.1 TH/MM3 Basophils # (Auto) 0.0 TH/MM3 CBC Comment DIFF FINAL Differential Comment Prothrombin Time 10.2 SEC Prothromb Time International Ratio 1.0 RATIO Activated Partial Thromboplast Time 24.0 SEC Blood Urea Nitrogen 16 MG/DL Creatinine 1.01 MG/DL Random Glucose 140 MG/DL Calcium Level 8.6 MG/DL Magnesium Level 2.1 MG/DL Sodium Level 143 MEQ/L Potassium Level 3.6 MEQ/L Chloride Level 108 MEQ/L Carbon Dioxide Level 27.7 MEQ/L Anion Gap 7 MEQ/L Estimat Glomerular Filtration Rate 68 ML/MIN Total Creatine Kinase 82 U/L Troponin I LESS THAN 0.02 NG/ML MDM Medical Decision Making Medical Screen Exam Complete: Yes Emergency Medical Condition: Yes Medical Record Reviewed: Yes Interpretation(s) CBC & BMP Diagram 02/09/18 15:20 Calcium Level 8.6, Magnesium Level 2.1 EKG shows sinus rhythm with no sign of acute ischemia or arrhythmia. Read by me and attending. troponin and CKMB negative Differential Diagnosis Tooth pain versus gingivitis versus dental abscess versus chest pain versus ACS versus angina versus palpitations Narrative Course 57-year-old female that presents to the ED for evaluation of palpitations and tooth pain. Patient was properly examined and was found to have signs and symptoms consistent with what appears to be more dental pain. Unclear as to the palpitations but appears to be likely related to the pain that the patient is experiencing. Only risk factor she has is high cholesterol and her age. Labs were drawn. EKG was done. Labs showed no sign of acute disease. EKG negative. Patient is completely chest pain-free here. Case was discussed with my attending Dr. Oconnor who evaluated the patient and recommends discharge. This is likely related to dental pain. Will treat patient's pain with Lortab and Magic mouthwash. Patient was given prescription for amoxicillin to cover for infection. Follow-up with dentist. See ED worsening symptoms. Diagnosis Primary Impression: Dentalgia Patient Instructions: General Instructions, Narcotic given in the ED Additional Instructions: Take medications as prescribed. Follow-up with PCP. See ED for any worsening symptoms. Do not drink or drive while taking pain medication. Apply ice or heat as needed for pain Med/Other Pt SpecificInfo: Prescription(s) given Scripts Hydrocodone/Acetaminophen (Hydrocodone-Acetamin 5-325 mg) 5 Mg-325 Mg Tablet 1 TAB PO Q6HR Y for PAIN SCALE 1 TO 10, #10 Prov: Sonia Oconnor MD 02/09/18 Olueghme-Plueavdsjipevql-Hpmcuuvqz Liq (Magic Mouthwash Adult Liq) 120 Ml Susp 5 ML SWISH-SWAL ACHS for Mouth sores, #120 ML 0 Refills Each 5mL contains: Nystatin 200,000units, Diphenhydramine 4.25mg, Viscous Lidocaine 10mg, Varela syrup 0.8 mL Prov: Sonia Oconnor MD 02/09/18 Amoxicillin (Amoxicillin) 500 Mg Cap 500 MG PO TID for Infection for 10 Days, CAP 0 Refills Prov: Sonia Oconnor MD 02/09/18 Disposition: 01 DISCHARGE HOME Condition: Stable Brendon Hoffman Feb 09, 2018 16:04
[2018-02-09] MEDS ORDERED: MAGICADU2 SWISH-SWAL (16:07)
[2018-02-09] MEDS ORDERED: AMOX500C PO (16:07)
[2018-02-09] MEDS ORDERED: HYDR-3516 PO (16:07)
--- NOTE | 2018-02-09 16:21 | PD ---
Physical Exam Narrative I, Dr. Oconnor, have reviewed the advance practice practitioner's documentation and am in agreement, met with the patient face to face, made the diagnosis, and the medical decision making was done by me. *My assessment and Findings: Patient is a 57 year old female who comes in complaining of tooth pain. She says last night she had severe pain to her right upper molar. She says when she laid down in bed she felt her heart flutter. She took an aspirin and never felt the flutter again. She denies ever having any chest pain or SOB. Exam shows no evidence of dental abscess. Heart is RRR. Data Data Last Documented VS Vital Signs Date Time Temp Pulse Resp B/P (MAP) Pulse Ox O2 Delivery O2 Flow Rate FiO2 02/09/18 14:23 98.1 86 16 126/71 (89) 100 Orders Orders Electrocardiogram (02/09/18 14:46) Basic Metabolic Panel (Bmp) (02/09/18 14:46) Ckmb (Isoenzyme) Profile (02/09/18 14:46) Complete Blood Count With Diff (02/09/18 14:46) Magnesium (Mg) (02/09/18 14:46) Prothrombin Time / Inr (Pt) (02/09/18 14:46) Act Partial Throm Time (Ptt) (02/09/18 14:46) Troponin I (02/09/18 14:46) Ecg Monitoring (02/09/18 14:46) Iv Access Insert/Monitor (02/09/18 14:46) Aspirin (Aspirin) (02/09/18 15:00) Morphine Inj (Morphine Inj) (02/09/18 15:00) Sodium Chlorid 0.9% 500 Ml Inj (Ns 500 M (02/09/18 15:00) Ondansetron Inj (Zofran Inj) (02/09/18 15:00) Ed Discharge Order (02/09/18 16:08) Labs Laboratory Tests Test 02/09/18 15:20 White Blood Count 7.7 TH/MM3 Red Blood Count 4.51 MIL/MM3 Hemoglobin 12.3 GM/DL Hematocrit 36.9 % Mean Corpuscular Volume 81.7 FL Mean Corpuscular Hemoglobin 27.2 PG Mean Corpuscular Hemoglobin Concent 33.3 % Red Cell Distribution Width 14.2 % Platelet Count 278 TH/MM3 Mean Platelet Volume 8.0 FL Neutrophils (%) (Auto) 71.5 % Lymphocytes (%) (Auto) 21.8 % Monocytes (%) (Auto) 5.0 % Eosinophils (%) (Auto) 1.3 % Basophils (%) (Auto) 0.4 % Neutrophils # (Auto) 5.5 TH/MM3 Lymphocytes # (Auto) 1.7 TH/MM3 Monocytes # (Auto) 0.4 TH/MM3 Eosinophils # (Auto) 0.1 TH/MM3 Basophils # (Auto) 0.0 TH/MM3 CBC Comment DIFF FINAL Differential Comment Prothrombin Time 10.2 SEC Prothromb Time International Ratio 1.0 RATIO Activated Partial Thromboplast Time 24.0 SEC Blood Urea Nitrogen 16 MG/DL Creatinine 1.01 MG/DL Random Glucose 140 MG/DL Calcium Level 8.6 MG/DL Magnesium Level 2.1 MG/DL Sodium Level 143 MEQ/L Potassium Level 3.6 MEQ/L Chloride Level 108 MEQ/L Carbon Dioxide Level 27.7 MEQ/L Anion Gap 7 MEQ/L Estimat Glomerular Filtration Rate 68 ML/MIN Total Creatine Kinase 82 U/L Troponin I LESS THAN 0.02 NG/ML MDM Supervised Visit with BRISA: Yes Narrative Course Labs show no acute abnormalities. Given prescriptions for pain medicine antibiotics. Advised to follow up with a dentist and her PCP. Advised to return to the ED as needed for any worsening symptoms. Diagnosis Primary Impression: Dentalgia Patient Instructions: General Instructions, Narcotic given in the ED Departure Forms: Tests/Procedures Additional Instruction: Take medications as prescribed. Follow-up with PCP. See ED for any worsening symptoms. Do not drink or drive while taking pain medication. Apply ice or heat as needed for pain Scripts Hydrocodone/Acetaminophen (Hydrocodone-Acetamin 5-325 mg) 5 Mg-325 Mg Tablet 1 TAB PO Q6HR Y for PAIN SCALE 1 TO 10, #10 Prov: Sonia Oconnor MD 02/09/18 Qseqcjog-Jlamlbpxnjmvvtn-Jcebtdbgk Liq (Magic Mouthwash Adult Liq) 120 Ml Susp 5 ML SWISH-SWAL ACHS for Mouth sores, #120 ML 0 Refills Each 5mL contains: Nystatin 200,000units, Diphenhydramine 4.25mg, Viscous Lidocaine 10mg, Varela syrup 0.8 mL Prov: Sonia Oconnor MD 02/09/18 Amoxicillin (Amoxicillin) 500 Mg Cap 500 MG PO TID for Infection for 10 Days, CAP 0 Refills Prov: Sonia Oconnor MD 02/09/18 Disposition: 01 DISCHARGE HOME Condition: Stable Sonia Oconnor MD Feb 09, 2018 16:21
--- NOTE | 2018-02-10 14:26 | EKG ---
Date Performed: 02/09/2018 Time Performed: 14:59:54 PTAGE: 57 years EKG: Sinus rhythm LOW QRS VOLTAGE IN PRECORDIAL LEADS NONSPECIFIC T-WAVE ABNORMALITY BORDERLINE ECG Since PREVIOUS TRACING , no significant change noted PREVIOUS TRACIN11/28/2017 13.58 DOCTOR: Anya Story Interpretating Date/Time 02/10/2018 14:24:21
== END 2018-02-09 17:58 | disposition home or self-care (01) ==
LOC: NEPE 14:20
DX: K08.89 Other specified disorders of teeth and supporting structures (principal); R00.2 Palpitations; R68.84 Jaw pain; R94.31 Abnormal electrocardiogram [ECG] [EKG]; E03.9 Hypothyroidism, unspecified; J45.909 Unspecified asthma, uncomplicated; Z79.899 Other long term (current) drug therapy
CPT/HCPCS: 80048; 82550; 83735; 84484; 85025; 85610; 85730; 93005; 96361; 96374; 96375; 99284; J2270; J2405; J7040

== ENCOUNTER 2018-03-23 12:27 | Emergency (ER) | payer SELFPAY ==
[~2018-03-23] VITALS: Ht 152.4 cm; Wt 59.1 kg
[~2018-03-23 12:27] MED LIST changes: +AMOX500C PO; -BENZ100 PO; -CEPH-460 PO; +HYDR-3516 PO; +MAGICADU2 SWISH-SWAL; -PRED50 PO; -TRAM50TA PO
[2018-03-23 12:31] VITALS: BP 130/65; PULSE 101; RESP 16; TEMP 98.5; O2SAT 99
[2018-03-23] MEDS ORDERED: ACETAMINOPHEN 500 MG CPLT PO ONE (13:45)
--- NOTE | 2018-03-23 14:53 | PD ---
HPI Chief Complaint: Skin Problem Time Seen by Provider: 13:05 Travel History International Travel<30 days: No Contact w/Intl Traveler<30days: No Traveled to known affect area: No History of Present Illness HPI Is a 57-year-old woman presents emergency department complaining of pain to her right hip. She apparently got an injection of steroids or several months or weeks ago and has had a painful nodule there since. She was seen here early and a CT scan that showed some nonspecific implement and was put on antibiotics for possible abscess. She has had persistent symptoms. She saw her primary doctor who apparently wanted to get a repeat CT scan. She is having pain so she came in today. History Past Medical History Medical History: Denies Significant Hx Social History Alcohol Use: No Tobacco Use: No Allergies-Medications (Allergen,Severity, Reaction): Coded Allergies: Sulfa (Sulfonamide Antibiotics) (Verified Allergy, Severe, Anaphylaxis, ) clindamycin (Verified Allergy, Severe, 03/23/18) ibuprofen (Verified Allergy, Severe, Anaphylaxis, 03/23/18) minocycline (Verified Allergy, Severe, Hives, 03/23/18) tetracycline (Verified Allergy, Unknown, 03/23/18) Reported Meds & Prescriptions Reported Meds & Active Scripts Active Hydrocodone-Acetamin 5-325 mg (Hydrocodone/Acetaminophen) 5 Mg-325 Mg Tablet 1 Tab PO Q6HR PRN Magic Mouthwash Adult Liq (Multi-Ingredient Mouthwash/Gargle) 120 Ml Susp 5 Ml SWISH-SWAL ACHS Each 5mL contains: Nystatin 200,000units, Diphenhydramine 4.25mg, Viscous Lidocaine 10mg, Varela syrup 0.8 mL Amoxicillin 500 Mg Cap 500 Mg PO TID 10 Days Albuterol Neb (Albuterol Sulfate) 2.5 Mg/3 Ml Neb 2.5 Mg NEB Q4HR NEB While awake Proair Hfa 8.5 GM Inh (Albuterol Sulfate) 90 Mcg/Act Aer 2 Puff INH Q4-6H PRN 108 mcg/actuation Synthroid (Levothyroxine Sodium) 88 Mcg Tab 88 Mcg PO DAILY Review of Systems Except as stated in HPI: all other systems reviewed are Neg Physical Exam Narrative GENERAL: 57-year-old woman, no acute distress per SKIN: Warm and dry. CARDIOVASCULAR: Warm and well perfused. RESPIRATORY: Normal rate and effort. MUSCULOSKELETAL: There is a small approximately 1-2 cm tender nodule in the right upper thigh/lower buttock. No erythema or redness. No drainage. No other findings. NEUROLOGICAL: Awake and alert. No gross deficits. Data Data Last Documented VS Vital Signs Date Time Temp Pulse Resp B/P (MAP) Pulse Ox O2 Delivery O2 Flow Rate FiO2 03/23/18 12:31 98.5 101 16 130/65 (86) [address] Hip W/O Contrast (03/23/18 ) Acetaminophen (Tylenol) (03/23/18 13:45) MDM Medical Decision Making Medical Screen Exam Complete: Yes Emergency Medical Condition: Yes Differential Diagnosis Nodule, inflammatory reaction, fatty necrosis, other Narrative Course Medical decision making Is a 57-year-old woman presents emerged from with a tender nodule in her right buttock. This is likely fatty necrosis or inflammation following this injection. She is treated for an abscess with antibiotics without significant change. Will think this is likely infectious. She has a prescription for a repeat CT scan. I told her I thought this can be done as an outpatient but she felt strongly about wanting to get it done here. We ordered this, and the patient left before having it done stating that she had other things to do. We ordered her Tylenol for pain but she states that she did not worse. Ultimately patient eloped prior to be going back in the room giving her discharge instructions however patient was clear for discharge. Diagnosis Primary Impression: Right hip pain Additional Instructions: Follow-up with your primary doctor as discussed. Med/Other Pt SpecificInfo: No Change to Meds Disposition: 01 DISCHARGE HOME Condition: Stable King Mata MD March 23, 2018 14:53
== END 2018-03-23 14:55 | disposition home or self-care (01) ==
LOC: NEPD 12:27
DX: M25.551 Pain in right hip (principal)
CPT/HCPCS: 99282

== ENCOUNTER 2018-03-29 15:12 | Emergency (ER) | payer SELFPAY ==
[~2018-03-29] VITALS: Ht 152.4 cm; Wt 58.0 kg
[2018-03-29 15:34] VITALS: BP 137/77; PULSE 82; RESP 18; TEMP 97.9; O2SAT 100
[2018-03-29] MEDS ORDERED: SODIUM CHLOR 0.9% 1000 ML INJ 1,000 ML IV SCH (17:54)
[2018-03-29] MEDS ORDERED: SODIUM CHLORIDE 0.9% FLUSH 10 ML FLUSH IV FLUSH PRN (18:00)
[2018-03-29] MEDS ORDERED: ACETAMINOPHEN/HYDROcodone 325 MG/5 MG TAB PO ONE (18:15)
[2018-03-29 19:01] LABS: AUTOMATED NEUTROPHIL # 4.5 TH/MM3 (1.8-7.7); BASOPHIL # 0.1 TH/MM3 (0-0.2); BASOPHIL % 0.7 % (0.0-2.0); EOSINOPHIL # 0.1 TH/MM3 (0-0.4); EOSINOPHIL % 1.8 % (0.0-4.0); HEMATOCRIT 38.3 % (35.0-46.0); HEMOGLOBIN 12.7 GM/DL (11.6-15.3); LYMPH % 28.3 % (9.0-44.0); MEAN CELL VOLUME 82.1 FL (80.0-100.0); MEAN CORPUSCULAR HEMOGLOBIN 27.2 PG (27.0-34.0); MEAN CORPUSCULAR HGB CONC 33.1 % (32.0-36.0); MEAN PLATELET VOLUME 7.7 FL (7.0-11.0); MONO % 5.2 % (0.0-8.0); MONOCYTE # 0.4 TH/MM3 (0-0.9); PLATELET COUNT 292 TH/MM3 (150-450); RED BLOOD COUNT 4.66 MIL/MM3 (4.00-5.30); RED CELL DISTRIBUTION WIDTH 13.5 % (11.6-17.2); WHITE BLOOD COUNT 7.1 TH/MM3 (4.0-11.0)
--- NOTE | 2018-03-29 19:12 | PD ---
HPI Chief Complaint: Pain: Acute or Chronic Time Seen by Provider: 17:19 Travel History International Travel<30 days: No Contact w/Intl Traveler<30days: No Traveled to known affect area: No History of Present Illness HPI 57-year-old female presents to the emergency department complaint of continued right buttocks pain after she received an injection of Solu-Medrol back in October. She was seen here on January [address] of her right hip with IV contrast and a CT of her pelvis with IV contrast which showed some subcutaneous stranding. She has had continued pain and says the area has become bigger. She follows up with [facility] and they have given her an order for repeat CT scan for reevaluation. She denies fever, vomiting. Denies dysuria or change in stool. Says the pain radiates to her groin. Rates pain 9/10. Has tried heat and ice for symptom management without relief. No known aggravating or relieving factors. History of hypothyroidism and asthma. Allergies as listed on the chart. Primary care provider is [facility]. Has no other medical complaints. No other modifying factors or associated signs and symptoms. PFSH Past Medical History Asthma: Yes Cancer: No Cardiovascular Problems: No Diminished Hearing: No Gastrointestinal Disorders: No Genitourinary: No Implanted Vascular Access Dvce: No Musculoskeletal: No Neurologic: No Psychiatric: No Reproductive: No Respiratory: Yes (ASTHMA) Immunizations Current: Yes Thyroid Disease: Yes (hypothyroidism) ?: Not Past Surgical History Gynecologic Surgery: Yes (exploratory fibroid cyst in uterus 2000) Hysterectomy: No Social History Alcohol Use: No Tobacco Use: No Substance Use: No Allergies-Medications (Allergen,Severity, Reaction): Coded Allergies: Sulfa (Sulfonamide Antibiotics) (Verified Allergy, Severe, Anaphylaxis, 03/29/18) clindamycin (Verified Allergy, Severe, 03/29/18) ibuprofen (Verified Allergy, Severe, Anaphylaxis, 03/29/18) minocycline (Verified Allergy, Severe, Hives, 03/29/18) tetracycline (Verified Allergy, Unknown, 03/29/18) Reported Meds & Prescriptions Reported Meds & Active Scripts Active [place] (Hydrocodone-Acetaminophen) 5 Mg-325 Mg Tab 1 Tab PO Q6H PRN 5 Days Penicillin V Potassium 500 Mg Tab 500 Mg PO Q6H 7 Days Albuterol Neb (Albuterol Sulfate) 2.5 Mg/3 Ml Neb 2.5 Mg NEB Q4HR NEB While awake Proair Hfa 8.5 GM Inh (Albuterol Sulfate) 90 Mcg/Act Aer 2 Puff INH Q4-6H PRN 108 mcg/actuation Synthroid (Levothyroxine Sodium) 88 Mcg Tab 88 Mcg PO DAILY Review of Systems Except as stated in HPI: all other systems reviewed are Neg Physical Exam Narrative GENERAL: Well-nourished, well-developed female patient, in no acute distress; tearful SKIN: Warm and dry. Right buttocks with palpable indurated area that is without fluctuance to the subcutaneous tissue; no skin erythema or visual lump; no signs of infectious process. Right groin area without lymphadenopathy. HEAD: Atraumatic. Normocephalic. EYES: Pupils equal and round. No scleral icterus. No injection or drainage. ENT: Mucosa pink and moist. Airway patent. NECK: Trachea midline. CARDIOVASCULAR: Regular rate. RESPIRATORY: No accessory muscle use. GASTROINTESTINAL: Flat. MUSCULOSKELETAL: No obvious deformities. No clubbing. No cyanosis. No edema. NEUROLOGICAL: Awake and alert. Oriented 3. No obvious cranial nerve deficits. Motor grossly within normal limits. Normal speech. PSYCHIATRIC: Appropriate mood and affect; insight and judgment normal. Data Data Last Documented VS Vital Signs Date Time Temp Pulse Resp B/P (MAP) Pulse Ox O2 Delivery O2 Flow Rate FiO2 03/29/18 21:14 03/29/18 19:20 78 16 99 Room Air 03/29/18 15:34 97.9 Orders Orders Basic Metabolic Panel (Bmp) (03/29/18 17:54) Complete Blood Count With Diff (03/29/18 17:54) Sodium Chlor 0.9% 1000 Ml Inj (Ns 1000 M (03/29/18 17:54) Sodium Chloride 0.9% Flush (Ns Flush) (03/29/18 18:00) Ct Pelvis W Iv Contrast(Rout) (03/29/18 ) Acetamin-Hydrocod 325-5 Mg ([place] 5-325 (03/29/18 18:15) Iohexol 350 Inj (Omnipaque 350 Inj) (03/29/18 20:00) Ed Discharge Order (03/29/18 21:12) Labs Laboratory Tests Test 03/29/18 18:25 White Blood Count 7.1 TH/MM3 Red Blood Count 4.66 MIL/MM3 Hemoglobin 12.7 GM/DL Hematocrit 38.3 % Mean Corpuscular Volume 82.1 FL Mean Corpuscular Hemoglobin 27.2 PG Mean Corpuscular Hemoglobin Concent 33.1 % Red Cell Distribution Width 13.5 % Platelet Count 292 TH/MM3 Mean Platelet Volume 7.7 FL Neutrophils (%) (Auto) 64.0 % Lymphocytes (%) (Auto) 28.3 % Monocytes (%) (Auto) 5.2 % Eosinophils (%) (Auto) 1.8 % Basophils (%) (Auto) 0.7 % Neutrophils # (Auto) 4.5 TH/MM3 Lymphocytes # (Auto) 2.0 TH/MM3 Monocytes # (Auto) 0.4 TH/MM3 Eosinophils # (Auto) 0.1 TH/MM3 Basophils # (Auto) 0.1 TH/MM3 CBC Comment DIFF FINAL Differential Comment Blood Urea Nitrogen 13 MG/DL Creatinine 0.86 MG/DL Random Glucose 67 MG/DL Calcium Level 9.1 MG/DL Sodium Level 141 MEQ/L Potassium Level 3.8 MEQ/L Chloride Level 106 MEQ/L Carbon Dioxide Level 26.1 MEQ/L Anion Gap 9 MEQ/L Estimat Glomerular Filtration Rate 82 ML/MIN MDM Medical Decision Making Medical Screen Exam Complete: Yes Emergency Medical Condition: Yes Medical Record Reviewed: Yes Differential Diagnosis Abscess, hematoma, medical clearance Narrative Course This is a 57-year-old female who presents complaining of continued and worsening pain of an injection site of her right buttocks from October. She has been evaluated and had CT scans of this area, last done in December here at [place]. She is followed up with [facility] and has an order for repeat CT scan to evaluate the area. I talked to Dr. Oconnor and plan of care discussed. CBC, BMP, CT pelvis with IV contrast ordered. [place] ordered for pain. 1899: Report given to Dr. Oconnor at change of shift. See her note for final patient disposition. Scripts Hydrocodone-Acetaminophen ([place]) 5 Mg-325 Mg Tab 1 TAB PO Q6H Y for PAIN for 5 Days, #5 TAB 0 Refills Prov: Sonia Oconnor MD 03/29/18 Penicillin V Potassium (Penicillin V Potassium) 500 Mg Tab 500 MG PO Q6H for Infection for 7 Days, #28 TAB 0 Refills Prov: Sonia Oconnor MD 03/29/18 Violeta Luz Mar 29, 2018 19:12
[2018-03-29 19:20] VITALS: BP 110/62; PULSE 78; RESP 16; O2SAT 99
[2018-03-29 19:24] LABS: BICARBONATE 26.1 MEQ/L (21.0-32.0); CALCIUM 9.1 MG/DL (8.5-10.1); CREATININE 0.86 MG/DL (0.50-1.00)
[2018-03-29] MEDS ORDERED: IOHEXOL 350 MG/ML 10 ML VIAL (for RAD DIAG) IVCONTRAST ONE (20:00)
--- NOTE | 2018-03-29 20:11 | RADRPT ---
EXAM DATE: 03/29/2018 8:03 PM EDT AGE/SEX: 57 years / Female INDICATIONS: Right buttock pain. Evaluate for abscess. Increased pain and size. Compare to prior CT. CLINICAL DATA: This is the patient's initial encounter. Patient reports that signs and symptoms have been present for 4 - 6 months and indicates a pain score of 9/10. MEDICAL/SURGICAL HISTORY: None. . Oophorectomy. RADIATION DOSE: 10.72 CTDI (mGy) COMPARISON: [facility] [place], CT PELVIS W CONTRAST, 01/06/2018. . TECHNIQUE: Multiple contiguous helical axial images were obtained through pelvis following bolus inf usion of 75 ml Omnipaque 350 (iohexol) nonionic water-soluble contrast as a single exam dose. Imag es were obtained using multiple row detector helical technique. . Using automated exposure control an d adjustment of the mA and/or kV according to patient size, radiation dose was kept as low as reasona joann achievable to obtain optimal diagnostic quality images. FINDINGS: Bowel/Mesentery: The visualized small and large bowel demonstrates no acute abnormality. . Bladder: No wall thickening or mass. Retroperitoneum: No lymphadenopathy or acute vascular abnormality. Reproductive Organs: There are punctate densities within the uterus that are stable. Adnexa demonstr ate no abnormality. Inguinal: No lymphadenopathy or hernia. Bony Structures: No acute osseous abnormality is identified. There is facet arthrosis at L4-L5. Other: There is stranding within the subcutaneous fat of the right gluteal region. Centrally it has f at density and measures approximately 2.3 x 1.7 x 1.5 cm, stable from the prior examination. No fluid collection is present. Adjacent soft tissues and musculature demonstrate no abnormality. CONCLUSION: 1. Stable subcutaneous changes in the right buttock subcutaneous fat. The finding appears chronic an d could represent an area of fat necrosis from prior injury or injection. 2. No other acute findings identified within the pelvis. Electronically signed by: Fahad Tapia MD 03/29/2018 8:10 PM EDT
[2018-03-29] MEDS ORDERED: PENI500T PO (21:12)
[2018-03-29] MEDS ORDERED: NORC5TAB PO (21:12)
--- NOTE | 2018-03-29 21:12 | PD ---
Physical Exam Narrative I, Dr. Oconnor, have reviewed the advance practice practitioner's documentation and am in agreement, met with the patient face to face, made the diagnosis, and the medical decision making was done by me. *My assessment and Findings: Patient is a 57 year old female who comes in complaining of pain to her right buttocks. Exam shows no evidence of infection. Data Data Last Documented VS Vital Signs Date Time Temp Pulse Resp B/P (MAP) Pulse Ox O2 Delivery O2 Flow Rate FiO2 03/29/18 19:20 78 16 110/62 (78) 99 Room Air 03/29/18 15:34 97.9 Orders Orders Basic Metabolic Panel (Bmp) (03/29/18 17:54) Complete Blood Count With Diff (03/29/18 17:54) Sodium Chlor 0.9% 1000 Ml Inj (Ns 1000 M (03/29/18 17:54) Sodium Chloride 0.9% Flush (Ns Flush) (03/29/18 18:00) Ct Pelvis W Iv Contrast(Rout) (03/29/18 ) Acetamin-Hydrocod 325-5 Mg ([place] 5-325 (03/29/18 18:15) Iohexol 350 Inj (Omnipaque 350 Inj) (03/29/18 20:00) Labs Laboratory Tests Test 03/29/18 18:25 White Blood Count 7.1 TH/MM3 Red Blood Count 4.66 MIL/MM3 Hemoglobin 12.7 GM/DL Hematocrit 38.3 % Mean Corpuscular Volume 82.1 FL Mean Corpuscular Hemoglobin 27.2 PG Mean Corpuscular Hemoglobin Concent 33.1 % Red Cell Distribution Width 13.5 % Platelet Count 292 TH/MM3 Mean Platelet Volume 7.7 FL Neutrophils (%) (Auto) 64.0 % Lymphocytes (%) (Auto) 28.3 % Monocytes (%) (Auto) 5.2 % Eosinophils (%) (Auto) 1.8 % Basophils (%) (Auto) 0.7 % Neutrophils # (Auto) 4.5 TH/MM3 Lymphocytes # (Auto) 2.0 TH/MM3 Monocytes # (Auto) 0.4 TH/MM3 Eosinophils # (Auto) 0.1 TH/MM3 Basophils # (Auto) 0.1 TH/MM3 CBC Comment DIFF FINAL Differential Comment Blood Urea Nitrogen 13 MG/DL Creatinine 0.86 MG/DL Random Glucose 67 MG/DL Calcium Level 9.1 MG/DL Sodium Level 141 MEQ/L Potassium Level 3.8 MEQ/L Chloride Level 106 MEQ/L Carbon Dioxide Level 26.1 MEQ/L Anion Gap 9 MEQ/L Estimat Glomerular Filtration Rate 82 ML/MIN MDM Supervised Visit with BRISA: Yes Narrative Course CT pelvis performed shows fat necrosis, no new changes. Last [address] 03/29/18 0000 Signed Impressions: CONCLUSION: 1. Stable subcutaneous changes in the right buttock subcutaneous fat. The find ing appears chronic and could represent an area of fat necrosis from prior inju ry or injection. 2. No other acute findings identified within the pelvis. I explained this to the patient. She then told me she is having tooth pain and requesting an antibiotic. She would also like pain pills to go home with. Given a prescription for Penicillin. Given a prescription for 5 [place]. Advised to follow up with a dentist and [facility]. Diagnosis Primary Impression: Chronic gluteal pain Additional Impression: Dentalgia Patient Instructions: General Instructions, Narcotic Pain Management (ED), Toothache (ED) Additional Instruction: Follow-up with a primary care doctor. Take all of the antibiotics. Return to the ED as needed for any worsening symptoms. Scripts Hydrocodone-Acetaminophen ([place]) 5 Mg-325 Mg Tab 1 TAB PO Q6H Y for PAIN for 5 Days, #5 TAB 0 Refills Prov: Sonia Oconnor MD 03/29/18 Penicillin V Potassium (Penicillin V Potassium) 500 Mg Tab 500 MG PO Q6H for Infection for 7 Days, #28 TAB 0 Refills Prov: Sonia Oconnor MD 03/29/18 Disposition: 01 DISCHARGE HOME Condition: Stable Sonia Oconnor MD Mar 29, 2018 21:12
== END 2018-03-29 21:31 | disposition home or self-care (01) ==
LOC: NEPD 15:12
DX: M79.604 Pain in right leg (principal); K08.89 Other specified disorders of teeth and supporting structures; E03.9 Hypothyroidism, unspecified; J45.909 Unspecified asthma, uncomplicated; Z79.51 Long term (current) use of inhaled steroids; Z79.899 Other long term (current) drug therapy; Z88.2 Allergy status to sulfonamides; Z88.8 Allergy status to other drugs, medicaments and biological substances
CPT/HCPCS: 72193; 80048; 85025; 96360; 96361; 99284; J7030; Q9967